=== PATIENT | male | born 1940 | race Caucasian/White ===

== ENCOUNTER 2019-02-26 00:22 | Inpatient (IN) | payer MEDICARE, MEDICAID ==
[2019-02-26] VITALS (8 sets, daily range): BP systolic 128–165; BP diastolic 64–85
[~2019-02-26] VITALS: Ht 170.2 cm; Wt 93.5 kg
--- NOTE | 2019-02-26 00:22 | NUR ---
ED Nurse Note: Patient arrived via Ambulance, AAOx4, VSS, on room air satirating at 91%. Pt C/O generanlized weakness for a few days. Right IV AC 24G inserted.
[2019-02-26] MEDS ORDERED: LOSARTAN POTASS25 M1 PO (00:37)
[2019-02-26] MEDS ORDERED: FINASTERIDE5 MG ORAL (00:37)
[2019-02-26] MEDS ORDERED: ASPIR 8181 MG ORAL (00:37)
[2019-02-26] MEDS ORDERED: BREO ELLIPTA 11 EACH IH (00:37)
[2019-02-26] MEDS ORDERED: VITAMIN D400 INTLU ORAL (00:37)
[2019-02-26] MEDS ORDERED: SIMVASTATIN40 MG ORAL (00:37)
[2019-02-26] MEDS ORDERED: MAGNESIUM200 M1 PO (00:37)
[2019-02-26] MEDS ORDERED: IPRATROPIU0.2 MG/1 M HHN (00:37)
[2019-02-26] MEDS ORDERED: METFORMIN500 MG/5 M PO (00:37)
[2019-02-26] MEDS ORDERED: ANDRODERM1 EAC2 TD (00:37)
[2019-02-26] MEDS ORDERED: TRADJENTA5 MG PO (00:37)
[2019-02-26] MEDS ORDERED: FLOMAX0.4 MG ORAL (00:37)
[2019-02-26] MEDS ORDERED: GLIPIZIDE5 G1 MC (00:37)
[2019-02-26] MEDS ORDERED: ACETAMINOPHEN325 M1 ORAL (00:37)
--- NOTE | 2019-02-26 00:38 | Emergency Room Report ---
History of Present Illness General Chief Complaint: Generalized Weakness Source: Patient, Medical Record Present Illness HPI This is a 78-year-old male with multiple medical problem. He was brought in by EMS with chief complaint of altered mental status. Onset 1 day. He did have some mild cough and shortness of breath yesterday. None today. Per EMS, [facility] said he look a bit weaker. No fever chills but no nausea no vomiting. The denies any chest pain. Allergies: Coded Allergies: No Known Allergies (Unverified , 02/26/19) Patient History Past Medical History: see triage record, old chart reviewed, DM, HTN Past Surgical History: other Pertinent Family History: none Social History: Denies: smoking Immunizations: other Reviewed Nursing Documentation: PMH: Agreed; PSxH: Agreed Nursing Documentation-PMH Hx Cardiac Problems: Yes - HYPERCHOLESTEROL Hx Hypertension: Yes Hx Diabetes: Yes Review of Systems Constitutional: Reports: weakness Eye: Denies: eye pain, blurred vision ENT: Denies: ear pain, nose congestion, throat swelling Respiratory: Denies: cough, shortness of breath Cardiovascular: Denies: chest pain, palpitations Gastrointestinal: Denies: abdominal pain, diarrhea, nausea, vomiting Musculoskeletal: Denies: back pain, joint pain Skin: Denies: rash Neurological: Denies: headache, numbness Endocrine: Denies: increased thirst, increased urine Hematologic/Lymphatic: Denies: easy bruising All Other Systems: negative except mentioned in HPI Physical Exam Vital Signs Date Time Temp Pulse Resp B/P (MAP) Pulse Ox O2 Delivery O2 Flow Rate FiO2 02/26/19 00:19 98.1 92 18 128/64 (85) 94 Room Air Vitals normal Sp02 EP Interpretation: reviewed, normal General Appearance: well appearing, no apparent distress, alert Head: normocephalic, atraumatic Eyes: bilateral eye PERRL, bilateral eye EOMI ENT: hearing grossly normal, normal pharynx Neck: full range of motion, supple, no meningismus Respiratory: chest non-tender, lungs clear, normal breath sounds Cardiovascular #1: regular rate, rhythm, no murmur Gastrointestinal: normal bowel sounds, non tender, no mass, no organomegaly, no bruit, non-distended Musculoskeletal: back normal, normal range of motion, other - Right lower extremity: There is some erythema on the medial aspect measuring about 4 to 5 cm. Psychiatric: mood/affect normal Medical Decision Making Diagnostic Impression: Primary Impression: Acute metabolic encephalopathy Additional Impression: UTI (urinary tract infection) Qualified Codes: N30.00 - Acute cystitis without hematuria ER Course Patient presents with a medic encephalopathy secondary to UTI. No evidence of any sepsis, pneumonia, meningitis, ACS to name a few. Will admit for IV antibiotics. Discussed the case with Dr. Anders who will admit. EKG Diagnostic Results Rate: normal Rhythm: NSR ST Segments: no acute changes Rhythm Strip Diag. Results EP Interpretation: yes Rate: 77 Rhythm: NSR, no PVC's, no ectopy Chest X-Ray Diagnostic Results Chest X-Ray Diagnostic Results : Chest X-Ray Ordered: Yes # of Views/Limited/Complete: 1 View Indication: Other EP Interpretation: Yes Interpretation: no consolidation, no effusion, no pneumothorax, no acute cardiopulmonary disease Impression: No acute disease Electronically Signed by: Arturo Rodriguez MD Last Vital Signs Date Time Temp Pulse Resp B/P (MAP) Pulse Ox O2 Delivery O2 Flow Rate FiO2 02/26/19 00:19 98.1 92 18 128/64 (85) 94 Room Air Status: improved Disposition: ADMITTED INPATIENT Condition: Serious Arturo Rodriguez MD Feb 26, 2019 00:38
[2019-02-26 01:18] LABS: BASOPHILS % (AUTO) 0.9 % (0.0-2.0); EOSINOPHILS % (AUTO) 3.5 % (0.0-3.0); HEMATOCRIT 41.3 % (42.0-52.0); HEMOGLOBIN 12.9 G/DL (14.2-18.0); LYMPHOCYTES % (AUTO) 18.1 % (20.0-45.0); MEAN CORPUSCULAR VOLUME 86 FL (80-99); MONOCYTES % (AUTO) 6.7 % (1.0-10.0); NEUTROPHILS % (AUTO) 70.8 % (45.0-75.0); PLATELET COUNT 334 K/UL (150-450); RED BLOOD COUNT 4.78 M/UL (4.70-6.10); RED CELL DISTRIBUTION WIDTH 14.6 % (11.6-14.8); WHITE BLOOD COUNT 13.9 K/UL (4.8-10.8)
[2019-02-26 01:27] LABS: ANION GAP 3 mmol/L (5-15); BLOOD UREA NITROGEN 14 mg/dL (7-18); CALCIUM 9.5 MG/DL (8.5-10.1); CARBON DIOXIDE 37 MMOL/L (21-32); CHLORIDE 106 MMOL/L (98-107); CREATININE 0.9 MG/DL (0.55-1.30); POTASSIUM 4.5 MMOL/L (3.5-5.1); SODIUM 146 MMOL/L (136-145)
[2019-02-26 02:06] LABS: APPEARANCE,URINE CLEAR; BILIRUBIN, URINE NEGATIVE (NEGATIVE); GLUCOSE, URINE (UA) NEGATIVE (NEGATIVE); KETONES,URINE NEGATIVE (NEGATIVE); LEUKOCYTE ESTERASE ,URINE 2+ (NEGATIVE); NITRITE,URINE NEGATIVE (NEGATIVE); PH,URINE 5 (4.5-8.0); PROTEIN,URINE 2+ (NEGATIVE); UROBILINOGEN,URINE NORMAL MG/DL (0.0-1.0)
[2019-02-26 02:08] LABS: COLOR,URINE YELLOW
[2019-02-26] MEDS ORDERED: cefTRIAXone 1 GM in NS 55 ML IVPB ONE (02:30)
--- NOTE | 2019-02-26 02:36 | NUR ---
ED Nurse Note: Wounds on buttox and RT huerta noted.
--- NOTE | 2019-02-26 02:45 | NUR ---
NURSE NOTES:Patient received from ED . Patient coming from [facility]. This is78 yrs old with multiple m problem. he was brought by EMS with c/o altered mental status . onset for 1 day. He did have some mild cough and sob yesterday /vss, afebrile .no sob /no n/v noted. patient personal belongings . Patient have $168.00 and visa credit card . Antonio MORENO and nursing non destructive testing supervisor Angela . notified and aware. left message to DR. DEAN AND DR. CAIN still awaiting yo call back . will continue to monitoR
--- NOTE | 2019-02-26 02:45 | Diagnostic Imaging Report ---
EXAM: XR Chest, 1 View CLINICAL HISTORY: AMS TECHNIQUE: Frontal view of the chest. COMPARISON: No relevant prior studies available. FINDINGS: Lungs: No consolidation, pleural effusion or pneumothorax. Pleural space: See above. Heart: No cardiomediastinal or mediastinal enlargement. No hilar enlargement. Trachea is unremarkable. Mediastinum: See above. Bones/joints: Unremarkable. Vasculature: Atherosclerotic calcifications of the nonenlarged thoracic aortic arch. IMPRESSION: No acute cardiopulmonary disease.
--- NOTE | 2019-02-26 05:03 | NUR ---
NURSE NOTES:Late entry :Patient was agitated , upset, verbally abusive ,aggressive , angry hitting nurses staff.pulling his IV line .and Patient refused a new IV Line insertion . Patient wound photo was taken .still awaiting. personal belongings patient unable to sign . still awaiting to DR. DEAN for admissions orders . Antonio MORENO notified and aware. Addendum: 02/27/19 at 0605 by PAULINE DU LVN Late entry Patient refused photo taken in left lateral lower extremities .Patient stated 'NO if you touch me I'LL hit you" Will continue to monitor . antonio moreno notified and aware.
--- NOTE | 2019-02-26 08:00 | NUR ---
NURSE NOTES: Patient was alert and confused but pleasant this morning and following commands. Patient had occasional episodes of agitation and frustration--active listening and increased visitation at bedside to increase patient monitoring which appeared to have a calming effect. Patient in room closest to RN station for closer observation. Tolerated 25-50% of brkfst and lunch with no nvd. Voiding in urinal in morning with multiple spillage--currently with condom cath in place. Patient worked with PT today. OOB to chair occasionally with assist x1. IV abx initiated. VSS. Breathing easily on RA. Bed in lowest, locked position with bed alarm active and audible. WCTM and cont'd with plan of care.
[2019-02-26] MEDS ORDERED: Morphine Sulfate 2mg/ml Inj(IV/IM USE ONLY) IVP PRN (09:15)
[2019-02-26] MEDS ORDERED: Albuterol/Ipratropium 3ml neb HHN PRN (09:15)
[2019-02-26] MEDS ORDERED: Miralax 17gm pkt ORAL PRN (09:15)
--- NOTE | 2019-02-26 09:58 | NUR ---
NURSE NOTES: Pt currently awake/alert Ox4, with $168 in wallet, declines to send it to safe. Pt signed belongings list and initialed decline to send to safe.
[2019-02-26] MEDS: Cefepime HCl 2 GM in D5W 110 ML IV SCH (10:00)
[2019-02-26] MEDS ORDERED: Cefepime HCl 2 GM in D5W 110 ML IV SCH (11:00)
[2019-02-26] MEDS ORDERED: Vancomycin 2gm/D5W 550ml IVPB ONE ×2 (11:00)
--- NOTE | 2019-02-26 14:59 | NUR ---
PT Note PT ines completed, treatment initiated. Patient has muscle weakness with decreased postural stability, requiring assist in mobility and gait. Patient needs PT to increase his muscle strength and balance to improve his functional mobility and gait. Addendum: 02/26/19 at 1500 by SARITA ROSALES PT Amended: Links added.
--- NOTE | 2019-02-26 16:08 | History & Physical ---
History and Physical History & Physicial Dictated for Int Med-Dr Anders no. [id number] Allen Krishnamurthy MD Feb 26, 2019 16:08
--- NOTE | 2019-02-26 18:45 | History and Physical Report ---
DATE OF ADMISSION: 02/26/2019 CHIEF COMPLAINT: The patient is a 78-year-old male, who presents with a chief complaint of altered mental status. HISTORY OF PRESENT ILLNESS: The patient is a resident of [facility]. According to staff at [facility], the patient became increasingly altered over the last 24 hours. The patient has had some cough. Cough is nonproductive. Staff reports no fevers. The patient presented to [facility] emergency room. The patient is admitted for altered mental status to rule out pneumonia versus urinary tract infection. REVIEW OF SYSTEMS: CONSTITUTIONAL: The patient denies weight loss or weight gain. The patient's review of systems unable to assess secondary to the patient's mental status. PAST MEDICAL HISTORY: Significant for: 1. Type 2 diabetes. 2. Hypertension. 3. Hypercholesterolemia. PAST SURGICAL HISTORY: The patient denies. CURRENT MEDICATIONS: 1. Tylenol 650 mg p.o. q.4 h. p.r.n. 2. Aspirin 81 mg p.o. daily. 3. Finasteride 5 mg p.o. daily. 4. Fluticasone/vilanterol 100/25 mcg one inhalation daily. 5. Glipizide powder daily. 6. Tradjenta 5 mg p.o. daily. 7. Losartan 50 mg p.o. daily. 8. Magnesium 40 mg p.o. daily. 9. Metformin 1000 mg p.o. twice daily. 10. Simvastatin 40 mg p.o. daily. 11. Flomax 0.4 mg p.o. daily. 12. Testosterone patch applied daily. 13. Vitamin D3 400 units p.o. daily. ALLERGIES: No known drug allergies. SOCIAL HISTORY: The patient is single and is a resident of [facility]. The patient denies tobacco or alcohol use. PHYSICAL EXAMINATION: VITAL SIGNS: Temperature 98.1, respirations 18, pulse 92, and blood pressure 128/64. GENERAL: The patient is a well-developed and well-nourished male, in no apparent distress. HEENT: Eyes, pupils are equal and responsive to light and accommodation. Extraocular movements are intact. NECK: Supple without lymphadenopathy. CHEST: Lungs are clear to auscultation bilaterally without wheezes or rales. CARDIOVASCULAR: Regular rhythm and rate. S1, S2 normal without murmurs, rubs, or gallops. ABDOMEN: Soft, nontender, and nondistended. Positive bowel sounds. No evidence of hepatosplenomegaly. Currently, no rebound or guarding noted. EXTREMITIES: Negative for clubbing, cyanosis, or edema. RECTAL/GENITAL: Refused. NEUROLOGIC: Cranial nerves II through XII are grossly intact without focal deficits. Motor strength is 5/5 bilaterally. Deep tendon reflexes are 2+ plantar. LABORATORY STUDIES: WBC 13.9, hemoglobin 12.9, hematocrit 41.3, and platelets 333,000. Sodium 146, potassium 4.5, chloride 106, CO2 37, BUN 14, and creatinine 0.9. Glucose 124. Urinalysis showed 2+ protein, 2+ blood, 2+ leukocyte esterase with 30 to 40 wbc's. ASSESSMENT: This is a 78-year-old male with: 1. Altered mental status. 2. Urinary tract infection. 3. Diabetes type 2. 4. Hypertension. 5. Hypercholesteremia. TREATMENT: 1. Altered mental status. This may be secondary to urinary tract infection. 2. Urinary tract infection. The patient has been started empirically on vancomycin and cefepime. Await urine culture results. 3. Diabetes type 2. NovoLog sliding scale has been instituted. 4. Hypertension. Continue losartan as above. 5. Hypercholesterolemia. Continue atorvastatin as above. Allen Krishnamurthy M.D. DR: SOFIE JOB#: [id number] CC:
--- NOTE | 2019-02-26 19:20 | NUR ---
NURSE NOTES:Patient received from Alfredito Jean patient A/A/OX3. With episode of confusions . RH g #22 h/l Patent and intact . Patient denies any pain at this time NO SOB/ NO N/ V Noted . fall and safety precautions . call light within reach . bed in low positions at all times . will continue to monitor .
--- NOTE | 2019-02-26 19:30 | Consultation ---
History of Present Illness General Date patient seen: Feb 27, 2019 Chief Complaint: Generalized Weakness Present Illness HPI 78-year-old male with hx of DM, HTN multiple medical problem, was brought in by EMS with chief complaint of altered mental status for 1 day. He did have some mild cough and shortness of breath yesterday. No fever chills but no nausea no vomiting. The denies any chest pain. Allergies: Coded Allergies: No Known Allergies (Unverified , 02/26/19) Medication History Scheduled Aspirin* (Aspir 81*), 81 MG ORAL DAILY, (Reported) Finasteride (Finasteride), 5 MG ORAL DAILY, (Reported) Simvastatin (Zocor), 40 MG ORAL BEDTIME, (Reported) Tamsulosin HCl (Flomax), 0.4 MG ORAL DAILY, (Reported) Vitamin D (Vitamin D3), 400 UNITS ORAL DAILY, (Reported) Scheduled PRN Acetaminophen* (Acetaminophen 325MG Tablet*), 325 MG ORAL Q4H PRN for For Pain, (Reported) Ipratropium [place] 0.5MG/2.5ML (Ipratropium [place] 0.5MG/2.5ML), 0.5 MG HHN Q6H PRN for Shortness of Breath, (Reported) Miscellaneous Medications Fluticasone/Vilanterol (Breo Ellipta 100-25 Mcg INH), 1 EACH IH, (Reported) Glipizide (Glipizide), 5 GM MC, (Reported) Linagliptin (Tradjenta), 5 MG PO, (Reported) Losartan Potassium (Losartan Potassium), 50 MG PO, (Reported) Magnesium (Magnesium), 400 MG PO, (Reported) Metformin HCl (Metformin HCl), 1,000 MG PO, (Reported) Testosterone (Androderm), 1 EACH TD, (Reported) Patient History Healthcare decision [place] [id number]. 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: 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 II-XII grossly normal Last 24 Hour Vital Signs Date Time Temp Pulse Resp B/P (MAP) Pulse Ox O2 Delivery O2 Flow Rate FiO2 02/26/19 16:00 98.0 83 20 142/85 (104) 95 02/26/19 12:00 98.2 95 18 137/75 (95) 95 02/26/19 09:00 Room Air 02/26/19 08:00 94 20 131/72 (91) 02/26/19 06:00 97.0 77 18 142/70 (94) 97 02/26/19 05:22 Nasal Cannula 3.0 02/26/19 03:56 98.7 64 18 115/63 96 Nasal Cannula 2.0 02/26/19 02:45 97.9 72 19 131/64 (86) 96 72 02/26/19 00:22 98.1 59 19 128/64 94 Nasal Cannula 2.0 02/26/19 00:22 58 19 Nasal Cannula 2.0 02/26/19 00:19 98.1 92 18 128/64 (85) 94 Room Air Intake and Output 02/25/19 02/26/19 18:59 06:59 Intake Total 60 ml Output Total 500 ml Balance -440 ml Intake Oral 60 ml Output Urine Total 500 ml # Voids 2 Laboratory Tests Test 02/26/19 01:05 02/26/19 01:44 White Blood Count 13.9 K/UL (4.8-10.8) H Red Blood Count 4.78 M/UL (4.70-6.10) Hemoglobin 12.9 G/DL (14.2-18.0) L Hematocrit 41.3 % (42.0-52.0) L Mean Corpuscular Volume 86 FL (80-99) Mean Corpuscular Hemoglobin 26.9 PG (27.0-31.0) L Mean Corpuscular Hemoglobin Concent 31.1 G/DL (32.0-36.0) L Red Cell Distribution Width 14.6 % (11.6-14.8) Platelet Count 334 K/UL (150-450) Mean Platelet Volume 6.3 FL (6.5-10.1) L Neutrophils (%) (Auto) 70.8 % (45.0-75.0) Lymphocytes (%) (Auto) 18.1 % (20.0-45.0) L Monocytes (%) (Auto) 6.7 % (1.0-10.0) Eosinophils (%) (Auto) 3.5 % (0.0-3.0) H Basophils (%) (Auto) 0.9 % (0.0-2.0) Sodium Level 146 MMOL/L (136-145) H Potassium Level 4.5 MMOL/L (3.5-5.1) Chloride Level 106 MMOL/L (98-107) Carbon Dioxide Level 37 MMOL/L (21-32) H Anion Gap 3 mmol/L (5-15) L Blood Urea Nitrogen 14 mg/dL (7-18) Creatinine 0.9 MG/DL (0.55-1.30) Estimat Glomerular Filtration Rate mL/min (>60) Glucose Level 124 MG/DL (74-106) H Calcium Level 9.5 MG/DL (8.5-10.1) Troponin I 0.000 ng/mL (0.000-0.056) Urine Color Yellow Urine Appearance Clear Urine pH 5 (4.5-8.0) Urine Specific [place] 1.020 (1.005-1.035) Urine Protein 2+ (NEGATIVE) H Urine Glucose (UA) Negative (NEGATIVE) Urine Ketones Negative (NEGATIVE) Urine Blood 2+ (NEGATIVE) H Urine Nitrite Negative (NEGATIVE) Urine Bilirubin Negative (NEGATIVE) Urine Urobilinogen Normal MG/DL (0.0-1.0) Urine Leukocyte Esterase 2+ (NEGATIVE) H Urine RBC 5-10 /HPF (0 - 0) H Urine WBC 30-40 /HPF (0 - 0) H Urine Squamous Epithelial Cells Occasional /LPF Urine Bacteria Few /HPF (NONE) Urine Yeast Moderate /HPF (NONE) H Height (Feet): 5 Height (Inches): 7.00 Weight (Pounds): 200 Medications Current Medications Medications (Trade) Dose Ordered Sig/David Route PRN Reason Start Time Stop Time Status Last Admin Dose Admin Acetaminophen (Tylenol) 650 mg Q4H PRN ORAL T>100.5 02/26/19 09:15 03/28/19 09:14 Albuterol/ Ipratropium (Albuterol/ Ipratropium) 3 ml Q4H PRN HHN Shortness of Breath 02/26/19 09:15 03/03/19 09:14 Cefepime HCl 2 gm/ Dextrose 110 ml @ 220 mls/hr Q24H IV 02/26/19 10:00 03/05/19 09:59 02/26/19 10:00 Finasteride (Proscar) 5 mg DAILY ORAL 02/27/19 09:00 03/29/19 08:59 Haloperidol Lactate (Haldol) 2.5 mg Q6H PRN IM AGITATION 02/26/19 09:30 03/28/19 09:29 Heparin Sodium (Porcine) (Heparin 5000 units/ml) 5,000 units EVERY 12 HOURS SUBQ 02/26/19 21:00 03/28/19 20:59 Losartan Potassium (Cozaar) 50 mg DAILY ORAL 02/27/19 09:00 03/29/19 08:59 Morphine Sulfate (Morphine Sulfate) 2 mg Q4H PRN IVP PAIN 4-10 02/26/19 09:15 03/05/19 09:14 Ondansetron HCl (Zofran) 4 mg Q6H PRN IVP Nausea & Vomiting 02/26/19 09:15 03/28/19 09:14 Phenazopyridine HCl (Pyridium) 100 mg DAILYPRN PRN ORAL dysuria/pain on urination 02/26/19 09:15 03/28/19 09:14 Polyethylene Glycol (Miralax) 17 gm DAILYPRN PRN ORAL Constipation 02/26/19 09:15 03/28/19 09:14 Tamsulosin HCl (Flomax) 0.4 mg QHS ORAL 02/27/19 21:00 03/29/19 20:59 Temazepam (Restoril) 15 mg HSPRN PRN ORAL Insomnia 02/26/19 21:00 03/05/19 20:59 Vancomycin HCl (Vanco rx to dose) 1 ea DAILY PRN MISC . 02/26/19 09:30 03/28/19 09:29 Vancomycin HCl 750 mg/Sodium Chloride 275 ml @ 183.333 mls/hr Q12HR@1100,2300 IVPB 02/26/19 23:00 03/03/19 22:59 Assessment/Plan Problem List: (1) Acute metabolic encephalopathy ICD Codes: G93.41 - Metabolic encephalopathy SNOMED: 64896238, 878640378 (2) UTI (urinary tract infection) ICD Codes: N39.0 - Urinary tract infection, site not specified SNOMED: 99203070, 902762623 Qualifiers: Qualified Codes: N30.00 - Acute cystitis without hematuria (3) Diabetes mellitus ICD Codes: E11.9 - Type 2 diabetes mellitus without complications SNOMED: 86235548 (4) History of hypertension ICD Codes: Z86.79 - Personal history of other diseases of the circulatory system SNOMED: 667470343 Assessment/Plan: urine cultures iv abx check electrolytes sliding scale diabetic diet Justino Durant MD Feb 26, 2019 19:30
[2019-02-26] MEDS: Heparin 5000 units/ml inj SUBQ SCH (20:47)
[2019-02-26] MEDS: Vancomycin 750mg/NS 275ml IVPB SCH ×2 (22:16)
--- NOTE | 2019-02-26 23:00 | NUR ---
NURSE NOTES:Patient Assisted setting in the chair and assisted back to bed. Patient on 02 2l VIA N/C in placed . 'safety/ comfort Implemented . call light within reach. bed in low positions and lock . bed alarm on. will continue to monitor.
[2019-02-26] MEDS: Haloperidol 5mg/ml Inj IM PRN (23:32)
--- NOTE | 2019-02-26 23:32 | NUR ---
NURSE NOTES:Patient with slightly agitation Haldol 2.5 MG IM given. will continue to monitor.
[2019-02-27] VITALS: BP 143/73
[2019-02-27] MEDS ORDERED: Vancomycin 1 GM in D5W 275 ML IV SCH (00:30)
[2019-02-27 04:00] VITALS: BP 152/55
--- NOTE | 2019-02-27 06:05 | NUR ---
NURSE NOTES:Initiate wound dressing right and left buttocks and right calf per protocol .Offer patient photo on left lateral lower extremities Patient refused photo on left lateral lower extremities MIRNA CN notified and aware . explained the risk and benefits , still refusing .will continue to monitor .
[2019-02-27 06:38] LABS: BASOPHILS % (AUTO) 1.1 % (0.0-2.0); EOSINOPHILS % (AUTO) 4.3 % (0.0-3.0); HEMATOCRIT 36.8 % (42.0-52.0); HEMOGLOBIN 11.7 G/DL (14.2-18.0); LYMPHOCYTES % (AUTO) 21.6 % (20.0-45.0); MEAN CORPUSCULAR VOLUME 85 FL (80-99); MONOCYTES % (AUTO) 6.9 % (1.0-10.0); NEUTROPHILS % (AUTO) 66.1 % (45.0-75.0); PLATELET COUNT 273 K/UL (150-450); RED BLOOD COUNT 4.34 M/UL (4.70-6.10); RED CELL DISTRIBUTION WIDTH 14.3 % (11.6-14.8)
[2019-02-27 06:53] LABS: ALANINE AMINOTRANSFERASE 7 U/L (12-78); ALBUMIN 2.7 G/DL (3.4-5.0); ALBUMIN/GLOBULIN RATIO 0.8 (1.0-2.7); ALKALINE PHOSPHATASE 24 U/L (46-116); ANION GAP 4 mmol/L (5-15); ASPARTATE AMINO TRANSFERASE 12 U/L (15-37); BILIRUBIN,TOTAL 0.4 MG/DL (0.2-1.0); BLOOD UREA NITROGEN 8 mg/dL (7-18); CALCIUM 8.6 MG/DL (8.5-10.1); CARBON DIOXIDE 34 MMOL/L (21-32); CHLORIDE 104 MMOL/L (98-107); CREATININE 0.7 MG/DL (0.55-1.30); POTASSIUM 4.1 MMOL/L (3.5-5.1); SODIUM 142 MMOL/L (136-145)
--- NOTE | 2019-02-27 07:00 | NUR ---
NURSE NOTES:Call central supply for Patent overlay mattress. Stated to wait for wound care nurse . Endorsed to Dakota Jean to follow up .
--- NOTE | 2019-02-27 07:15 | NUR ---
HAND-OFF: Report given to SHELBY Jean Patient personal belongings Patient $168.00 and 1 visa inside Patient wallet .
--- NOTE | 2019-02-27 07:15 | NUR ---
NURSE NOTES: Patient received from RACHEL Leslie. Patient is AAOx3 with episode of confusions. RH g #22 h/l is patent and intact and wrapped in kerlix. Patient denies any pain at this time. patient is on 2L NC. patient is breathing even and unlabored. Fall and safety precautions initiated. Call light within reach. Setup patient to eat breakfast. Bed in low positions at all times . Will continue to monitor .
[2019-02-27] MEDS ORDERED: Losartan 50mg tab ORAL SCH (09:00)
--- NOTE | 2019-02-27 10:00 | NUR ---
NURSE NOTES: Patient removed condom catheter. patient asks to be moved from bed to chair about every 1/2 hour.
[2019-02-27] MEDS: Cefepime HCl 2 GM in D5W 110 ML IV SCH ×2 (10:03→22:16)
[2019-02-27] MEDS: Heparin 5000 units/ml inj SUBQ SCH ×2 (10:15→22:17)
[2019-02-27] MEDS: Vancomycin 750mg/NS 275ml IVPB SCH ×2 (11:09)
--- NOTE | 2019-02-27 11:58 | Pulmonology Progress Note ---
Assessment/Plan Problems: (1) Acute metabolic encephalopathy (2) UTI (urinary tract infection) (3) Diabetes mellitus (4) History of hypertension Assessment/Plan f/u cultures continue abx sliding scale diabetic diet dvt prophylaxis Subjective ROS Limited/Unobtainable: No Constitutional: Reports: no symptoms HEENT: Repors: no symptoms Allergies: Coded Allergies: No Known Allergies (Unverified , 02/26/19) Objective Last 24 Hour Vital Signs Date Time Temp Pulse Resp B/P (MAP) Pulse Ox O2 Delivery O2 Flow Rate FiO2 02/27/19 10:11 165/82 02/27/19 09:00 Nasal Cannula 2.0 02/27/19 04:00 98.2 66 18 152/55 (87) 96 02/27/19 00:00 98.2 80 18 143/73 (96) 96 02/26/19 21:00 Nasal Cannula 2.0 02/26/19 20:29 85 20 99 Nasal Cannula 2.0 28 02/26/19 20:24 80 20 94 Nasal Cannula 2.0 28 02/26/19 20:22 80 20 94 Nasal Cannula 2.0 28 02/26/19 20:15 98.2 86 18 140/77 (98) 98 02/26/19 20:00 98.2 91 18 165/71 (102) 98 02/26/19 16:00 98.0 83 20 142/85 (104) 95 02/26/19 12:00 98.2 95 18 137/75 (95) 95 Intake and Output 02/26/19 02/27/19 19:00 07:00 Intake Total 120 ml 1163.333 ml Output Total 300 ml 1200 ml Balance -180 ml -36.667 ml Intake Oral 120 ml 980 ml IV Total 183.333 ml Output Urine Total 300 ml 1200 ml # Voids 3 General Appearance: WD/WN, no acute distress HEENT: normocephalic Respiratory/Chest: chest wall non-tender, lungs clear Cardiovascular: normal peripheral pulses, normal rate Abdomen: normal bowel sounds, soft, non tender Genitourinary: normal external genitalia Extremities: no clubbing Skin: no rash Neurologic/Psychiatric: cra II-XII grossly normal Lymphatic: no neck adenopathy Microbiology Date/Time Source Procedure Growth Status 02/26/19 01:44 Urine,Clean Catch Urine Culture - Preliminary NO GROWTH Resulted Laboratory Tests 02/27/19 04:50: White Blood Count 11.0H, Red Blood Count 4.34L, Hemoglobin 11.7L, Hematocrit 36.8L, Mean Corpuscular Volume 85, Mean Corpuscular Hemoglobin 26.9L, Mean Corpuscular Hemoglobin Concent 31.7L, Red Cell Distribution Width 14.3, Platelet Count 273, Mean Platelet Volume 5.6L, Neutrophils (%) (Auto) 66.1, Lymphocytes (%) (Auto) 21.6, Monocytes (%) (Auto) 6.9, Eosinophils (%) (Auto) 4.3H, Basophils (%) (Auto) 1.1, Sodium Level 142, Potassium Level 4.1, Chloride Level 104, Carbon Dioxide Level 34H, Anion Gap 4L, Blood Urea Nitrogen 8, Creatinine 0.7, Estimat Glomerular Filtration Rate , Glucose Level 169H, Calcium Level 8.6, Total Bilirubin 0.4, Aspartate Amino Transf (AST/SGOT) 12L, Alanine Aminotransferase (ALT/SGPT) 7L, Alkaline Phosphatase 24L, Total Protein 6.3L, Albumin 2.7L, Globulin 3.6, Albumin/Globulin Ratio 0.8L Current Medications Medications (Trade) Dose Ordered Sig/David Route PRN Reason Start Time Stop Time Status Last Admin Dose Admin Acetaminophen (Tylenol) 650 mg Q4H PRN ORAL T>100.5 02/26/19 09:15 03/28/19 09:14 Albuterol/ Ipratropium (Albuterol/ Ipratropium) 3 ml Q4H PRN HHN Shortness of Breath 02/26/19 09:15 03/03/19 09:14 02/26/19 20:22 Cefepime HCl 2 gm/ Dextrose 110 ml @ 220 mls/hr Q12H IV 02/27/19 21:00 03/05/19 09:59 Finasteride (Proscar) 5 mg DAILY ORAL 02/27/19 09:00 03/29/19 08:59 02/27/19 10:04 Haloperidol Lactate (Haldol) 2.5 mg Q6H PRN IM AGITATION 02/26/19 09:30 03/28/19 09:29 02/26/19 23:32 Heparin Sodium (Porcine) (Heparin 5000 units/ml) 5,000 units EVERY 12 HOURS SUBQ 02/26/19 21:00 03/28/19 20:59 02/27/19 10:15 Losartan Potassium (Cozaar) 50 mg DAILY ORAL 02/27/19 09:00 03/29/19 08:59 02/27/19 10:11 Morphine Sulfate (Morphine Sulfate) 2 mg Q4H PRN IVP PAIN 4-10 02/26/19 09:15 03/05/19 09:14 Ondansetron HCl (Zofran) 4 mg Q6H PRN IVP Nausea & Vomiting 02/26/19 09:15 03/28/19 09:14 Phenazopyridine HCl (Pyridium) 100 mg DAILYPRN PRN ORAL dysuria/pain on urination 02/26/19 09:15 03/28/19 09:14 Polyethylene Glycol (Miralax) 17 gm DAILYPRN PRN ORAL Constipation 02/26/19 09:15 03/28/19 09:14 Tamsulosin HCl (Flomax) 0.4 mg QHS ORAL 02/27/19 21:00 03/29/19 20:59 Temazepam (Restoril) 15 mg HSPRN PRN ORAL Insomnia 02/26/19 21:00 03/05/19 20:59 02/26/19 21:45 Vancomycin HCl (Vanco rx to dose) 1 ea DAILY PRN MISC . 02/26/19 09:30 03/28/19 09:29 Vancomycin HCl 750 mg/Sodium Chloride 275 ml @ 183.333 mls/hr Q12HR@1100,2300 IVPB 02/26/19 23:00 03/03/19 22:59 02/27/19 11:09 Justino Durant MD Feb 27, 2019 11:58
[2019-02-27 12:00] VITALS: BP 166/84
--- NOTE | 2019-02-27 12:00 | NUR ---
NURSE NOTES: Patient noted to kick pillows off, remove optifoam dressing, denies pictures and assessment of lower extremity. Will continue to monitor patient.
--- NOTE | 2019-02-27 13:33 | Consultation ---
History of Present Illness General Date patient seen: Feb 27, 2019 Chief Complaint: Generalized Weakness Present Illness HPI 78 y/o M with hx of DM, HTN, HLD, BPH, SNF resident presented to ED on 02/26 with 1 day of altered mental status, mild cough (non productive), SOB Denied f/c, n/v/d, chest pain Allergies: Coded Allergies: No Known Allergies (Unverified , 02/26/19) Medication History Scheduled Aspirin* (Aspir 81*), 81 MG ORAL DAILY, (Reported) Finasteride (Finasteride), 5 MG ORAL DAILY, (Reported) Simvastatin (Zocor), 40 MG ORAL BEDTIME, (Reported) Tamsulosin HCl (Flomax), 0.4 MG ORAL DAILY, (Reported) Vitamin D (Vitamin D3), 400 UNITS ORAL DAILY, (Reported) Scheduled PRN Acetaminophen* (Acetaminophen 325MG Tablet*), 325 MG ORAL Q4H PRN for For Pain, (Reported) Ipratropium [place] 0.5MG/2.5ML (Ipratropium [place] 0.5MG/2.5ML), 0.5 MG HHN Q6H PRN for Shortness of Breath, (Reported) Miscellaneous Medications Fluticasone/Vilanterol (Breo Ellipta 100-25 Mcg INH), 1 EACH IH, (Reported) Glipizide (Glipizide), 5 GM MC, (Reported) Linagliptin (Tradjenta), 5 MG PO, (Reported) Losartan Potassium (Losartan Potassium), 50 MG PO, (Reported) Magnesium (Magnesium), 400 MG PO, (Reported) Metformin HCl (Metformin HCl), 1,000 MG PO, (Reported) Testosterone (Androderm), 1 EACH TD, (Reported) Patient History Healthcare decision [place] [facility] [address]. Resuscitation status Do Not Resuscitate Advanced Directive on File No Patient History Narrative Pmhx: as above Shx: Denies: smoking. The patient is single and is a resident of [facility]. The patient denies alcohol use. 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 Last 24 Hour Vital Signs Date Time Temp Pulse Resp B/P (MAP) Pulse Ox O2 Delivery O2 Flow Rate FiO2 02/27/19 12:59 86 166/84 02/27/19 12:00 98.2 86 20 166/84 (111) 94 02/27/19 10:11 165/82 02/27/19 09:00 Nasal Cannula 2.0 02/27/19 04:00 98.2 66 18 152/55 (87) 96 02/27/19 00:00 98.2 80 18 143/73 (96) 96 02/26/19 21:00 Nasal Cannula 2.0 02/26/19 20:29 85 20 99 Nasal Cannula 2.0 28 02/26/19 20:24 80 20 94 Nasal Cannula 2.0 28 02/26/19 20:22 80 20 94 Nasal Cannula 2.0 28 02/26/19 20:15 98.2 86 18 140/77 (98) 98 02/26/19 20:00 98.2 91 18 165/71 (102) 98 02/26/19 16:00 98.0 83 20 142/85 (104) 95 Intake and Output 02/26/19 02/27/19 19:00 07:00 Intake Total 120 ml 1163.333 ml Output Total 300 ml 1200 ml Balance -180 ml -36.667 ml Intake Oral 120 ml 980 ml IV Total 183.333 ml Output Urine Total 300 ml 1200 ml # Voids 3 Laboratory Tests Test 02/27/19 04:50 White Blood Count 11.0 K/UL (4.8-10.8) H Red Blood Count 4.34 M/UL (4.70-6.10) L Hemoglobin 11.7 G/DL (14.2-18.0) L Hematocrit 36.8 % (42.0-52.0) L Mean Corpuscular Volume 85 FL (80-99) Mean Corpuscular Hemoglobin 26.9 PG (27.0-31.0) L Mean Corpuscular Hemoglobin Concent 31.7 G/DL (32.0-36.0) L Red Cell Distribution Width 14.3 % (11.6-14.8) Platelet Count 273 K/UL (150-450) Mean Platelet Volume 5.6 FL (6.5-10.1) L Neutrophils (%) (Auto) 66.1 % (45.0-75.0) Lymphocytes (%) (Auto) 21.6 % (20.0-45.0) Monocytes (%) (Auto) 6.9 % (1.0-10.0) Eosinophils (%) (Auto) 4.3 % (0.0-3.0) H Basophils (%) (Auto) 1.1 % (0.0-2.0) Sodium Level 142 MMOL/L (136-145) Potassium Level 4.1 MMOL/L (3.5-5.1) Chloride Level 104 MMOL/L (98-107) Carbon Dioxide Level 34 MMOL/L (21-32) H Anion Gap 4 mmol/L (5-15) L Blood Urea Nitrogen 8 mg/dL (7-18) Creatinine 0.7 MG/DL (0.55-1.30) Estimat Glomerular Filtration Rate mL/min (>60) Glucose Level 169 MG/DL (74-106) H Calcium Level 8.6 MG/DL (8.5-10.1) Total Bilirubin 0.4 MG/DL (0.2-1.0) Aspartate Amino Transf (AST/SGOT) 12 U/L (15-37) L Alanine Aminotransferase (ALT/SGPT) 7 U/L (12-78) L Alkaline Phosphatase 24 U/L (46-116) L Total Protein 6.3 G/DL (6.4-8.2) L Albumin 2.7 G/DL (3.4-5.0) L Globulin 3.6 g/dL Albumin/Globulin Ratio 0.8 (1.0-2.7) L Height (Feet): 5 Height (Inches): 7.00 Weight (Pounds): 200 Medications Current Medications Medications (Trade) Dose Ordered Sig/David Route PRN Reason Start Time Stop Time Status Last Admin Dose Admin Acetaminophen (Tylenol) 650 mg Q4H PRN ORAL T>100.5 02/26/19 09:15 03/28/19 09:14 Albuterol/ Ipratropium (Albuterol/ Ipratropium) 3 ml Q4H PRN HHN Shortness of Breath 02/26/19 09:15 03/03/19 09:14 02/26/19 20:22 Amlodipine Besylate (Norvasc) 5 mg DAILY ORAL 02/27/19 12:30 03/29/19 12:29 02/27/19 12:59 Cefepime HCl 2 gm/ Dextrose 110 ml @ 220 mls/hr Q12H IV 02/27/19 21:00 03/05/19 09:59 Clonidine HCl (Catapres Tab) 0.1 mg Q6H PRN ORAL For SBP >160 02/27/19 12:30 03/29/19 12:29 Finasteride (Proscar) 5 mg DAILY ORAL 02/27/19 09:00 03/29/19 08:59 02/27/19 10:04 Haloperidol Lactate (Haldol) 2.5 mg Q6H PRN IM AGITATION 02/26/19 09:30 03/28/19 09:29 02/26/19 23:32 Heparin Sodium (Porcine) (Heparin 5000 units/ml) 5,000 units EVERY 12 HOURS SUBQ 02/26/19 21:00 03/28/19 20:59 02/27/19 10:15 Losartan Potassium (Cozaar) 50 mg DAILY ORAL 02/27/19 09:00 03/29/19 08:59 02/27/19 10:11 Morphine Sulfate (Morphine Sulfate) 2 mg Q4H PRN IVP PAIN 4-10 02/26/19 09:15 03/05/19 09:14 Ondansetron HCl (Zofran) 4 mg Q6H PRN IVP Nausea & Vomiting 02/26/19 09:15 03/28/19 09:14 Phenazopyridine HCl (Pyridium) 100 mg DAILYPRN PRN ORAL dysuria/pain on urination 02/26/19 09:15 03/28/19 09:14 Polyethylene Glycol (Miralax) 17 gm DAILYPRN PRN ORAL Constipation 02/26/19 09:15 03/28/19 09:14 Tamsulosin HCl (Flomax) 0.4 mg QHS ORAL 02/27/19 21:00 03/29/19 20:59 Temazepam (Restoril) 15 mg HSPRN PRN ORAL Insomnia 02/26/19 21:00 03/05/19 20:59 02/26/19 21:45 Vancomycin HCl (Vanco rx to dose) 1 ea DAILY PRN MISC . 02/26/19 09:30 03/28/19 09:29 Vancomycin HCl 750 mg/Sodium Chloride 275 ml @ 183.333 mls/hr Q12HR@1100,2300 IVPB 02/26/19 23:00 03/03/19 22:59 02/27/19 11:09 Assessment/Plan Assessment/Plan: Abx: IV Vancomycin 02/26- Cefepime 02/26- Ceftriaxone x1 02/26 Assessment: Acute encephalopathy Afebrile Mild leukocytosis, improving -CXR No acute cardiopulmonary disease. Probable UTI -u/a wbc 30-40, nit neg, leuk +2; ucx p DM HTN HLD BPH SNF resident Plan: -Continue empiric Cefepime #2 pending UCx -D/c empiric IV Vancomycin #2 -f/u cx -Monitor CBC/CMP, temperatures Thank you for this consultation. Will continue to follow along with you. Discussed with Sally Draper M.D. Feb 27, 2019 13:33
--- NOTE | 2019-02-27 13:36 | Internal Med Progress Note ---
Subjective Date of Service: Feb 27, 2019 Physician Name Krishnamurthy,Allen Attending Physician Matthew Anders MD Current Medications Medications (Trade) Dose Ordered Sig/David Route PRN Reason Start Time Stop Time Status Last Admin Dose Admin Acetaminophen (Tylenol) 650 mg Q4H PRN ORAL T>100.5 02/26/19 09:15 03/28/19 09:14 Albuterol/ Ipratropium (Albuterol/ Ipratropium) 3 ml Q4H PRN HHN Shortness of Breath 02/26/19 09:15 03/03/19 09:14 02/26/19 20:22 Amlodipine Besylate (Norvasc) 5 mg DAILY ORAL 02/27/19 12:30 03/29/19 12:29 02/27/19 12:59 Cefepime HCl 2 gm/ Dextrose 110 ml @ 220 mls/hr Q12H IV 02/27/19 21:00 03/05/19 09:59 Clonidine HCl (Catapres Tab) 0.1 mg Q6H PRN ORAL For SBP >160 02/27/19 12:30 03/29/19 12:29 Finasteride (Proscar) 5 mg DAILY ORAL 02/27/19 09:00 03/29/19 08:59 02/27/19 10:04 Haloperidol Lactate (Haldol) 2.5 mg Q6H PRN IM AGITATION 02/26/19 09:30 03/28/19 09:29 02/26/19 23:32 Heparin Sodium (Porcine) (Heparin 5000 units/ml) 5,000 units EVERY 12 HOURS SUBQ 02/26/19 21:00 03/28/19 20:59 02/27/19 10:15 Losartan Potassium (Cozaar) 50 mg DAILY ORAL 02/27/19 09:00 03/29/19 08:59 02/27/19 10:11 Morphine Sulfate (Morphine Sulfate) 2 mg Q4H PRN IVP PAIN 4-10 02/26/19 09:15 03/05/19 09:14 Ondansetron HCl (Zofran) 4 mg Q6H PRN IVP Nausea & Vomiting 02/26/19 09:15 03/28/19 09:14 Phenazopyridine HCl (Pyridium) 100 mg DAILYPRN PRN ORAL dysuria/pain on urination 02/26/19 09:15 9/10/19 09:14 Polyethylene Glycol (Miralax) 17 gm DAILYPRN PRN ORAL Constipation 02/26/19 09:15 03/28/19 09:14 02/27/19 13:32 Tamsulosin HCl (Flomax) 0.4 mg QHS ORAL 02/27/19 21:00 03/29/19 20:59 Temazepam (Restoril) 15 mg HSPRN PRN ORAL Insomnia 02/26/19 21:00 03/05/19 20:59 02/26/19 21:45 Allergies: Coded Allergies: No Known Allergies (Unverified , 02/26/19) ROS Limited/Unobtainable: Yes Subjective 78 YO M admitted with altered mental status. Cover for Int [place]-Dr Anders Objective Last Vital Signs Date Time Temp Pulse Resp B/P (MAP) Pulse Ox O2 Delivery O2 Flow Rate FiO2 02/27/19 12:59 86 166/84 02/27/19 12:00 98.2 20 94 02/27/19 09:00 Nasal Cannula 2.0 02/26/19 20:29 28 Laboratory Tests Test 02/27/19 04:50 White Blood Count 11.0 K/UL (4.8-10.8) H Red Blood Count 4.34 M/UL (4.70-6.10) L Hemoglobin 11.7 G/DL (14.2-18.0) L Hematocrit 36.8 % (42.0-52.0) L Mean Corpuscular Volume 85 FL (80-99) Mean Corpuscular Hemoglobin 26.9 PG (27.0-31.0) L Mean Corpuscular Hemoglobin Concent 31.7 G/DL (32.0-36.0) L Red Cell Distribution Width 14.3 % (11.6-14.8) Platelet Count 273 K/UL (150-450) Mean Platelet Volume 5.6 FL (6.5-10.1) L Neutrophils (%) (Auto) 66.1 % (45.0-75.0) Lymphocytes (%) (Auto) 21.6 % (20.0-45.0) Monocytes (%) (Auto) 6.9 % (1.0-10.0) Eosinophils (%) (Auto) 4.3 % (0.0-3.0) H Basophils (%) (Auto) 1.1 % (0.0-2.0) Sodium Level 142 MMOL/L (136-145) Potassium Level 4.1 MMOL/L (3.5-5.1) Chloride Level 104 MMOL/L (98-107) Carbon Dioxide Level 34 MMOL/L (21-32) H Anion Gap 4 mmol/L (5-15) L Blood Urea Nitrogen 8 mg/dL (7-18) Creatinine 0.7 MG/DL (0.55-1.30) Estimat Glomerular Filtration Rate mL/min (>60) Glucose Level 169 MG/DL (74-106) H Calcium Level 8.6 MG/DL (8.5-10.1) Total Bilirubin 0.4 MG/DL (0.2-1.0) Aspartate Amino Transf (AST/SGOT) 12 U/L (15-37) L Alanine Aminotransferase (ALT/SGPT) 7 U/L (12-78) L Alkaline Phosphatase 24 U/L (46-116) L Total Protein 6.3 G/DL (6.4-8.2) L Albumin 2.7 G/DL (3.4-5.0) L Globulin 3.6 g/dL Albumin/Globulin Ratio 0.8 (1.0-2.7) L Microbiology Date/Time Source Procedure Growth Status 02/26/19 01:44 Urine,Clean Catch Urine Culture - Preliminary NO GROWTH Resulted Intake and Output 02/26/19 02/27/19 19:00 07:00 Intake Total 120 ml 1163.333 ml Output Total 300 ml 1200 ml Balance -180 ml -36.667 ml Intake Oral 120 ml 980 ml IV Total 183.333 ml Output Urine Total 300 ml 1200 ml # Voids 3 Objective PHYSICAL EXAMINATION: GENERAL: The patient is a well-developed and well-nourished male, in no apparent distress. HEENT: Eyes, pupils are equal and responsive to light and accommodation. Extraocular movements are intact. NECK: Supple without lymphadenopathy. CHEST: Lungs are clear to auscultation bilaterally without wheezes or rales. CARDIOVASCULAR: Regular rhythm and rate. S1, S2 normal without murmurs, rubs, or gallops. ABDOMEN: Soft, nontender, and nondistended. Positive bowel sounds. No evidence of hepatosplenomegaly. Currently, no rebound or guarding noted. EXTREMITIES: Negative for clubbing, cyanosis, or edema. RECTAL/GENITAL: Refused. NEUROLOGIC: Cranial nerves II through XII are grossly intact without focal deficits. Motor strength is 5/5 bilaterally. Deep tendon reflexes are 2+ plantar. Assessment/Plan Assessment/Plan ASSESSMENT: This is a 78-year-old male with: 1. Altered mental status. 2. Urinary tract infection. 3. Diabetes type 2. 4. Hypertension. 5. Hypercholesteremia. TREATMENT: 1. Altered mental status. This may be secondary to urinary tract infection. 2. Urinary tract infection. The patient has been started empirically on vancomycin and cefepime. Await urine culture results. 3. Diabetes type 2. NovoLog sliding scale has been instituted. 4. Hypertension. Continue losartan as above. 5. Hypercholesterolemia. Continue atorvastatin as above. Allen Krishnamurthy MD Feb 27, 2019 13:36
--- NOTE | 2019-02-27 14:00 | NUR ---
NURSE NOTES: Although patient does small urine output in urinal, Patient states difficulty to urinate. Dr. Durant was notified and order for [place] was in placed.
[2019-02-27] MEDS: Haloperidol 5mg/ml Inj IM PRN (15:10)
--- NOTE | 2019-02-27 15:24 | NUR ---
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 IS: none Admitted to Med-surg Med-surg status DCP: Pending Hospital Stay
--- NOTE | 2019-02-27 16:45 | NUR ---
NURSE NOTES: Made two attempts to insert cooper and by charge nurse. Both attempts unsuccessful. Made page to Dr. Durant about possible urology consult.
--- NOTE | 2019-02-27 16:50 | NUR ---
DISCHARGE PLANNING DISCHARGE ORDER NOTED Patient has been accepted to; [facility] [address], [place] [address] Bed: [address] [phone] for Nurse to Nurse report [facility] ETA for transportation: 17:30 Addendum: 02/27/19 at 1702 by BERNADETTE WALLS CM ((( d/c order canceled)))
--- NOTE | 2019-02-27 19:30 | NUR ---
HAND-OFF: Report given to RACHEL Gastelum. When entering the room, the patient shown labored breathing, and altered mental status. Upon rechecking v/s, noticed heart rate 125 and blood pressure in the 180s. BROILER MANAGER was called. SEE BROILER MANAGER NOTE. Steffanie was inserted. Dr. Durant was notified. Patient will be transferred to tele. BROILER MANAGER ended at 19:30.
--- NOTE | 2019-02-27 19:34 | NUR ---
NURSE'S NOTES: DIRECTOR OF DISTRICT OFFICE CALLED AT 1914 FOR AMS, HIGH BLOOD PRESSURE POST CLONIDINE .01MG AT 184/110 HR OF 125, O2 SAT AT 90% @2L VIA NC AND URINARY RETENTION. DIRECTOR OF DISTRICT OFFICE TEAM CAME AT 1916; PATIENT PLACED ON THE MONITOR WHICH SHOWED SINUS TACH. O2 INCREASED TO 4L/MIN, RT TX GIVEN BUT PATIENT OBSERVED TAKING MASK OFF; RESTRAINTS INITIATED AT 1922; MANN INSERTED AT 1924. BP AND HR NOW OBSERVED TO BE GOING DOWN BP 168/81 HR 108 AT 1927. STAT ORDERS RECEIVED FROM DR. DEAN; TRANSFER TO [facility], STAT EKG AND HYDRALAZINE 5 MG IVP Q4H FOR SBP>160. DIRECTOR OF DISTRICT OFFICE COMPLETED AT 1929
--- NOTE | 2019-02-27 19:53 | NUR ---
NURSE'S NOTES: DR. VERMA CALLED; RELAYED TO MD THAT MANAGER CODING RN ABLE TO INSERT IV. 1200CC URINE OUT WITH SOME HEMATURIA BUT NO BLOOD CLOTS.
[2019-02-27 20:00] VITALS: BP 136/70
--- NOTE | 2019-02-27 20:28 | NUR ---
nurse's notes: transferred patient to [facility] via bed to rm 210-1 at 2009; report given to micheal; went through belongings; all accounted for; patient with $168 ng in wallet; endorsed ng to micheal; patient is sleeping, with no visible s/s of distress at time of transfer.
--- NOTE | 2019-02-27 20:30 | NUR ---
NURSE NOTES: Received patient/report from RACHEL Gastelum from 301-1. Patient in bed asleep showing no signs of acute distress. Respiration even and non labored on 2L nc O2. Patient noted on Bilateral soft wrist restraints, cap refill <3sec, skin is intact, no skin discoloration and no injury noted. IV on right Hand patent and intact. [place] patent, intact and draining. monitoring analyst on showing SR. Wound photo taken and uploaded. Went over belongings checklist with Oriana. Call light within reach, bed in lowest position, wheels locked and alarm on. All needs attended and met. Will continue plan of care. Addendum: 02/28/19 at 0118 by CHAPARRO BENNETT RN Belongings went over with Oriana, Reza has $168.00 ng and 1 visa kept at bed side drawer.
[2019-02-27] MEDS ORDERED: Miralax 17gm pkt ORAL PRN (21:00)
[2019-02-27] MEDS ORDERED: Cefepime HCl 2 GM in D5W 110 ML IV SCH (21:00)
[2019-02-27] MEDS ORDERED: Tamsulosin 0.4mg cap ORAL SCH (21:00)
[2019-02-27] MEDS: Tamsulosin 0.4mg cap ORAL SCH (21:00)
[2019-02-27] MEDS ORDERED: Albuterol/Ipratropium 3ml neb HHN PRN (21:15)
[2019-02-27] MEDS ORDERED: Morphine Sulfate 2mg/ml Inj(IV/IM USE ONLY) IVP PRN (21:15)
[2019-02-27] MEDS ORDERED: Haloperidol 5mg/ml Inj IM PRN (21:30)
[2019-02-28] VITALS (7 sets, daily range): BP systolic 108–148; BP diastolic 58–81
--- NOTE | 2019-02-28 07:10 | NUR ---
NURSE NOTES: Received patient RACHEL Dasilva. Patient is in bed asleep showing no signs of acute distress. Respiration even and non labored on 2L nc O2. Patient has Bilateral soft wrist restraints, cap refill <3sec, skin is intact, no skin discoloration and no injury noted. IV on right Hand patent and intact. [place] patent, intact and draining. laboratory monitor on showing SR. Call light within reach, bed in lowest position, wheels locked and alarm on. Will continue plan of care.
--- NOTE | 2019-02-28 07:16 | NUR ---
HAND-OFF: Report given to RACHEL Duncan.
[2019-02-28 07:20] LABS: BASOPHILS % (AUTO) 0.8 % (0.0-2.0); EOSINOPHILS % (AUTO) 1.3 % (0.0-3.0); HEMATOCRIT 40.9 % (42.0-52.0); HEMOGLOBIN 13.1 G/DL (14.2-18.0); LYMPHOCYTES % (AUTO) 16.1 % (20.0-45.0); MEAN CORPUSCULAR VOLUME 85 FL (80-99); MONOCYTES % (AUTO) 5.4 % (1.0-10.0); NEUTROPHILS % (AUTO) 76.5 % (45.0-75.0); PLATELET COUNT 306 K/UL (150-450); RED BLOOD COUNT 4.81 M/UL (4.70-6.10); RED CELL DISTRIBUTION WIDTH 14.1 % (11.6-14.8); WHITE BLOOD COUNT 14.1 K/UL (4.8-10.8)
[2019-02-28 07:33] LABS: ANION GAP 6 mmol/L (5-15); BLOOD UREA NITROGEN 10 mg/dL (7-18); CALCIUM 8.8 MG/DL (8.5-10.1); CARBON DIOXIDE 32 MMOL/L (21-32); CHLORIDE 104 MMOL/L (98-107); CREATININE 0.9 MG/DL (0.55-1.30); POTASSIUM 4.3 MMOL/L (3.5-5.1); SODIUM 142 MMOL/L (136-145)
[2019-02-28] MEDS ORDERED: Losartan 50mg tab ORAL SCH (09:00)
[2019-02-28] MEDS: Cefepime HCl 2 GM in D5W 110 ML IV SCH ×2 (09:05→21:01)
[2019-02-28] MEDS: Heparin 5000 units/ml inj SUBQ SCH ×2 (09:06→21:03)
--- NOTE | 2019-02-28 11:00 | NUR ---
NURSE NOTES: Patient stated in the removal of wrist restraints and cooper. Discussed the patient on the need of the cooper and restraints. will continue discussion and education.
--- NOTE | 2019-02-28 11:07 | Pulmonology Progress Note ---
Assessment/Plan Problems: (1) Acute metabolic encephalopathy (2) UTI (urinary tract infection) (3) Diabetes mellitus (4) History of hypertension Assessment/Plan [place] catheter is in heart rate and blood pressure are more stable. f/u cultures continue abx sliding scale diabetic diet dvt prophylaxis Subjective ROS Limited/Unobtainable: No Constitutional: Reports: no symptoms HEENT: Repors: no symptoms Allergies: Coded Allergies: No Known Allergies (Unverified , 02/26/19) Objective Last 24 Hour Vital Signs Date Time Temp Pulse Resp B/P (MAP) Pulse Ox O2 Delivery O2 Flow Rate FiO2 02/28/19 09:05 130/58 02/28/19 09:05 74 130/58 02/28/19 09:00 Nasal Cannula 2.0 02/28/19 08:00 97.9 74 20 130/58 (82) 95 02/28/19 04:00 98.0 78 18 130/60 (83) 95 02/28/19 04:00 92 02/28/19 00:00 92 02/28/19 00:00 98.0 105 20 108/73 (85) 99 02/27/19 20:38 97 02/27/19 20:00 99.1 108 20 136/70 (92) 96 02/27/19 19:59 Nasal Cannula 4.0 02/27/19 18:42 185/84 02/27/19 12:59 86 166/84 02/27/19 12:00 98.2 86 20 166/84 (111) 94 Intake and Output 02/27/19 02/28/19 19:00 07:00 Intake Total 240 ml Output Total 100 ml 2600 ml Balance 140 ml -2600 ml Intake Oral 240 ml Output Urine Total 100 ml 2600 ml General Appearance: WD/WN HEENT: normocephalic, atraumatic Respiratory/Chest: chest wall non-tender, lungs clear Cardiovascular: normal peripheral pulses, normal rate Abdomen: normal bowel sounds, soft, non tender Microbiology Date/Time Source Procedure Growth Status 02/26/19 10:53 Blood Blood Culture - Preliminary NO GROWTH AFTER 24 HOURS Resulted 02/26/19 10:40 Blood Blood Culture - Preliminary NO GROWTH AFTER 24 HOURS Resulted 02/26/19 01:45 Nose MRSA Culture - Final NO METHICILLIN RESISTANT STAPH AUREUS... Complete 02/26/19 01:44 Urine,Clean Catch Urine Culture - Preliminary NO GROWTH AFTER 24 HOURS Resulted Laboratory Tests 02/28/19 05:20: White Blood Count 14.1H, Red Blood Count 4.81, Hemoglobin 13.1L, Hematocrit 40.9L, Mean Corpuscular Volume 85, Mean Corpuscular Hemoglobin 27.3, Mean Corpuscular Hemoglobin Concent 32.1, Red Cell Distribution Width 14.1, Platelet Count 306, Mean Platelet Volume 6.3L, Neutrophils (%) (Auto) 76.5H, Lymphocytes (%) (Auto) 16.1L, Monocytes (%) (Auto) 5.4, Eosinophils (%) (Auto) 1.3, Basophils (%) (Auto) 0.8, Sodium Level 142, Potassium Level 4.3, Chloride Level 104, Carbon Dioxide Level 32, Anion Gap 6, Blood Urea Nitrogen 10, Creatinine 0.9, Estimat Glomerular Filtration Rate , Glucose Level 260H, Calcium Level 8.8 Current Medications Medications (Trade) Dose Ordered Sig/David Route PRN Reason Start Time Stop Time Status Last Admin Dose Admin Acetaminophen (Tylenol) 650 mg Q4H PRN ORAL T>100.5 02/27/19 21:15 03/28/19 09:14 Albuterol/ Ipratropium (Albuterol/ Ipratropium) 3 ml Q4H PRN HHN Shortness of Breath 02/27/19 21:15 03/03/19 09:14 Amlodipine Besylate (Norvasc) 5 mg DAILY ORAL 02/28/19 09:00 03/29/19 12:29 02/28/19 09:05 Cefepime HCl 2 gm/ Dextrose 110 ml @ 220 mls/hr Q12H IV 02/27/19 21:00 03/05/19 09:59 02/28/19 09:05 Clonidine HCl (Catapres Tab) 0.1 mg Q6H PRN ORAL For SBP >160 02/27/19 21:00 03/29/19 20:59 Finasteride (Proscar) 5 mg DAILY ORAL 02/28/19 09:00 03/29/19 08:59 02/28/19 09:05 Haloperidol Lactate (Haldol) 2.5 mg Q6H PRN IM AGITATION 02/27/19 21:30 03/28/19 09:29 Heparin Sodium (Porcine) (Heparin 5000 units/ml) 5,000 units EVERY 12 HOURS SUBQ 02/27/19 21:00 03/28/19 20:59 02/28/19 09:06 Hydralazine HCl (Apresoline) 5 mg Q4H PRN IV For High Blood Pressure 02/27/19 21:00 03/29/19 20:59 Losartan Potassium (Cozaar) 50 mg DAILY ORAL 02/28/19 09:00 03/29/19 08:59 02/28/19 09:05 Morphine Sulfate (Morphine Sulfate) 2 mg Q4H PRN IVP PAIN 4-10 02/27/19 21:15 03/05/19 09:14 Ondansetron HCl (Zofran) 4 mg Q6H PRN IVP Nausea & Vomiting 02/27/19 21:15 03/28/19 09:14 Phenazopyridine HCl (Pyridium) 100 mg DAILYPRN PRN ORAL dysuria/pain on urination 02/28/19 09:15 03/28/19 09:14 Polyethylene Glycol (Miralax) 17 gm DAILYPRN PRN ORAL Constipation 02/27/19 21:00 03/29/19 20:59 Tamsulosin HCl (Flomax) 0.4 mg QHS ORAL 02/27/19 21:00 03/29/19 20:59 Temazepam (Restoril) 15 mg HSPRN PRN ORAL Insomnia 02/27/19 21:00 03/05/19 20:59 Justino Durant MD Feb 28, 2019 11:07
[2019-02-28] MEDS ORDERED: Albuterol/Ipratropium 3ml neb HHN PRN ×2 (11:30→23:30)
--- NOTE | 2019-02-28 12:23 | Infectious Diseases Prog Note ---
Assessment/Plan Assessment/Plan Assessment: Acute encephalopathy Afebrile Mild leukocytosis, increased -CXR No acute cardiopulmonary disease. Probable UTI -u/a wbc 30-40, nit neg, leuk +2; ucx NTD -Bcx NTD DM HTN HLD BPH SN[facility] resident Plan: -Continue empiric Cefepime #3 pending UCx -02/27 SP IV Vancomycin #2 -02/26 SP Ceftriaxone x1 -f/u cx -Monitor CBC/CMP, temperatures Thank you for this consultation. Will continue to follow along with you. Discussed with RN Subjective Allergies: Coded Allergies: No Known Allergies (Unverified , 02/26/19) Subjective afebrile wbc increased Bcx NTD Objective Vital Signs Last 24 Hour Vital Signs Date Time Temp Pulse Resp B/P (MAP) Pulse Ox O2 Delivery O2 Flow Rate FiO2 02/28/19 12:00 97.7 94 20 148/81 (103) 95 02/28/19 09:05 130/58 02/28/19 09:05 74 130/58 02/28/19 09:00 Nasal Cannula 2.0 02/28/19 08:00 97.9 74 20 130/58 (82) 95 02/28/19 07:59 71 02/28/19 04:00 98.0 78 18 130/60 (83) 95 02/28/19 04:00 92 02/28/19 00:00 92 02/28/19 00:00 98.0 105 20 108/73 (85) 99 02/27/19 20:38 97 02/27/19 20:00 99.1 108 20 136/70 (92) 96 02/27/19 19:59 Nasal Cannula 4.0 02/27/19 18:42 185/84 02/27/19 12:59 86 166/84 Height (Feet): 5 Height (Inches): 7.00 Weight (Pounds): 200 Objective General Appearance: WD/WN Lines, tubes and drains: peripheral, PICC HEENT: normocephalic, atraumatic Neck: non-tender, supple Respiratory/Chest: chest wall non-tender, lungs clear Abdomen: normal bowel sounds, non tender Genitourinary/Rectal: normal genital exam Extremities: normal range of motion Skin Exam: normal pigmentation Neurologic: occupational health rn II-XII grossly normal Microbiology Date/Time Source Procedure Growth Status 02/26/19 10:53 Blood Blood Culture - Preliminary NO GROWTH AFTER 24 HOURS Resulted 02/26/19 10:40 Blood Blood Culture - Preliminary NO GROWTH AFTER 24 HOURS Resulted 02/26/19 01:45 Nose MRSA Culture - Final NO METHICILLIN RESISTANT STAPH AUREUS... Complete 02/26/19 01:44 Urine,Clean Catch Urine Culture - Preliminary NO GROWTH AFTER 24 HOURS Resulted Laboratory Tests Test 02/28/19 05:20 White Blood Count 14.1 K/UL (4.8-10.8) H Red Blood Count 4.81 M/UL (4.70-6.10) Hemoglobin 13.1 G/DL (14.2-18.0) L Hematocrit 40.9 % (42.0-52.0) L Mean Corpuscular Volume 85 FL (80-99) Mean Corpuscular Hemoglobin 27.3 PG (27.0-31.0) Mean Corpuscular Hemoglobin Concent 32.1 G/DL (32.0-36.0) Red Cell Distribution Width 14.1 % (11.6-14.8) Platelet Count 306 K/UL (150-450) Mean Platelet Volume 6.3 FL (6.5-10.1) L Neutrophils (%) (Auto) 76.5 % (45.0-75.0) H Lymphocytes (%) (Auto) 16.1 % (20.0-45.0) L Monocytes (%) (Auto) 5.4 % (1.0-10.0) Eosinophils (%) (Auto) 1.3 % (0.0-3.0) Basophils (%) (Auto) 0.8 % (0.0-2.0) Sodium Level 142 MMOL/L (136-145) Potassium Level 4.3 MMOL/L (3.5-5.1) Chloride Level 104 MMOL/L (98-107) Carbon Dioxide Level 32 MMOL/L (21-32) Anion Gap 6 mmol/L (5-15) Blood Urea Nitrogen 10 mg/dL (7-18) Creatinine 0.9 MG/DL (0.55-1.30) Estimat Glomerular Filtration Rate mL/min (>60) Glucose Level 260 MG/DL (74-106) H Calcium Level 8.8 MG/DL (8.5-10.1) Current Medications Medications (Trade) Dose Ordered Sig/David Route PRN Reason Start Time Stop Time Status Last Admin Dose Admin Acetaminophen (Tylenol) 650 mg Q4H PRN ORAL T>100.5 02/27/19 21:15 03/28/19 09:14 Albuterol/ Ipratropium (Albuterol/ Ipratropium) 3 ml Q4H PRN HHN Shortness of Breath 02/28/19 11:30 03/05/19 11:29 Amlodipine Besylate (Norvasc) 5 mg DAILY ORAL 02/28/19 09:00 03/29/19 12:29 02/28/19 09:05 Cefepime HCl 2 gm/ Dextrose 110 ml @ 220 mls/hr Q12H IV 02/27/19 21:00 03/05/19 09:59 02/28/19 09:05 Clonidine HCl (Catapres Tab) 0.1 mg Q6H PRN ORAL For SBP >160 02/27/19 21:00 03/29/19 20:59 Finasteride (Proscar) 5 mg DAILY ORAL 02/28/19 09:00 03/29/19 08:59 02/28/19 09:05 Haloperidol Lactate (Haldol) 2.5 mg Q6H PRN IM AGITATION 02/27/19 21:30 03/28/19 09:29 Heparin Sodium (Porcine) (Heparin 5000 units/ml) 5,000 units EVERY 12 HOURS SUBQ 02/27/19 21:00 03/28/19 20:59 02/28/19 09:06 Hydralazine HCl (Apresoline) 5 mg Q4H PRN IV For High Blood Pressure 02/27/19 21:00 03/29/19 20:59 Losartan Potassium (Cozaar) 50 mg DAILY ORAL 02/28/19 09:00 03/29/19 08:59 02/28/19 09:05 Morphine Sulfate (Morphine Sulfate) 2 mg Q4H PRN IVP PAIN 4-10 02/27/19 21:15 03/05/19 09:14 Ondansetron HCl (Zofran) 4 mg Q6H PRN IVP Nausea & Vomiting 02/27/19 21:15 03/28/19 09:14 Phenazopyridine HCl (Pyridium) 100 mg DAILYPRN PRN ORAL dysuria/pain on urination 02/28/19 09:15 03/28/19 09:14 Polyethylene Glycol (Miralax) 17 gm DAILYPRN PRN ORAL Constipation 02/27/19 21:00 03/29/19 20:59 Tamsulosin HCl (Flomax) 0.4 mg QHS ORAL 02/27/19 21:00 03/29/19 20:59 Temazepam (Restoril) 15 mg HSPRN PRN ORAL Insomnia 02/27/19 21:00 03/05/19 20:59 Sally Guerrier M.D. Feb 28, 2019 12:23
--- NOTE | 2019-02-28 14:00 | NUR ---
NURSE NOTES: Patient has been noncompliant in changing sides. Wound care was done. legs elevated. The patient still kicks the pillows and blankets off the floor. Patient made attempts to remove optifoam. Will continue education teaching on turning and skin care.
--- NOTE | 2019-02-28 15:24 | NUR ---
NURSE NOTES:WOUND CARE NOTES:Pt presented on admission with multiple partial thickness pressure injuries with surrounding non-blanching erythema that is indurated. Non-blanching erythema with fluctuance R heel. Non-blanching erythema with fluctuance L heel. Dry scabbed wound noted to posterior L tibia. No elevation in skin temp, erythema or induration periwound. No other skin concerns noted. Pt was cooperative during wound assessment but Primary nurse stated pt can be resistive to care. Tx.Plan: Apply Moisture Barrier Paste to R and L buttocks. Cover with Optifoam drsg. Change every 3 days and prn. Apply Cavilon Skin Barrier to both heels. Cover each heel with Optifoam drsg. Change every 7 days and prn. Cover wound posterior L tibia with Optifoam drsg. Change every 7 days and prn. Reposition at least every 2hours or as tolerated. Off-load heels with pillow.
--- NOTE | 2019-02-28 15:54 | Internal Med Progress Note ---
Subjective Date of Service: Feb 28, 2019 Physician Name Krishnamurthy,Allen Attending Physician Matthew Anders MD Current Medications Medications (Trade) Dose Ordered Sig/David Route PRN Reason Start Time Stop Time Status Last Admin Dose Admin Acetaminophen (Tylenol) 650 mg Q4H PRN ORAL T>100.5 02/27/19 21:15 03/28/19 09:14 Albuterol/ Ipratropium (Albuterol/ Ipratropium) 3 ml Q4H PRN HHN Shortness of Breath 02/28/19 11:30 03/05/19 11:29 Amlodipine Besylate (Norvasc) 5 mg DAILY ORAL 02/28/19 09:00 03/29/19 12:29 02/28/19 09:05 Cefepime HCl 2 gm/ Dextrose 110 ml @ 220 mls/hr Q12H IV 02/27/19 21:00 03/05/19 09:59 02/28/19 09:05 Clonidine HCl (Catapres Tab) 0.1 mg Q6H PRN ORAL For SBP >160 02/27/19 21:00 03/29/19 20:59 Finasteride (Proscar) 5 mg DAILY ORAL 02/28/19 09:00 03/29/19 08:59 02/28/19 09:05 Haloperidol Lactate (Haldol) 2.5 mg Q6H PRN IM AGITATION 02/27/19 21:30 03/28/19 09:29 Heparin Sodium (Porcine) (Heparin 5000 units/ml) 5,000 units EVERY 12 HOURS SUBQ 02/27/19 21:00 03/28/19 20:59 02/28/19 09:06 Hydralazine HCl (Apresoline) 5 mg Q4H PRN IV For High Blood Pressure 02/27/19 21:00 03/29/19 20:59 Losartan Potassium (Cozaar) 50 mg DAILY ORAL 02/28/19 09:00 03/29/19 08:59 02/28/19 09:05 Morphine Sulfate (Morphine Sulfate) 2 mg Q4H PRN IVP PAIN 4-10 02/27/19 21:15 03/05/19 09:14 Ondansetron HCl (Zofran) 4 mg Q6H PRN IVP Nausea & Vomiting 02/27/19 21:15 03/28/19 09:14 Phenazopyridine HCl (Pyridium) 100 mg DAILYPRN PRN ORAL dysuria/pain on urination 02/28/19 09:15 03/28/19 09:14 Polyethylene Glycol (Miralax) 17 gm DAILYPRN PRN ORAL Constipation 02/27/19 21:00 03/29/19 20:59 Tamsulosin HCl (Flomax) 0.4 mg QHS ORAL 02/27/19 21:00 03/29/19 20:59 Temazepam (Restoril) 15 mg HSPRN PRN ORAL Insomnia 02/27/19 21:00 03/05/19 20:59 Allergies: Coded Allergies: No Known Allergies (Unverified , 02/26/19) ROS Limited/Unobtainable: Yes Subjective 78 YO M admitted with altered mental status. Cover for Int Med-Dr Anders Objective Last Vital Signs Date Time Temp Pulse Resp B/P (MAP) Pulse Ox O2 Delivery O2 Flow Rate FiO2 02/28/19 12:00 97.7 94 20 148/81 (103) 95 02/28/19 09:00 Nasal Cannula 2.0 02/28/19 07:00 28 Laboratory Tests Test 02/28/19 05:20 White Blood Count 14.1 K/UL (4.8-10.8) H Red Blood Count 4.81 M/UL (4.70-6.10) Hemoglobin 13.1 G/DL (14.2-18.0) L Hematocrit 40.9 % (42.0-52.0) L Mean Corpuscular Volume 85 FL (80-99) Mean Corpuscular Hemoglobin 27.3 PG (27.0-31.0) Mean Corpuscular Hemoglobin Concent 32.1 G/DL (32.0-36.0) Red Cell Distribution Width 14.1 % (11.6-14.8) Platelet Count 306 K/UL (150-450) Mean Platelet Volume 6.3 FL (6.5-10.1) L Neutrophils (%) (Auto) 76.5 % (45.0-75.0) H Lymphocytes (%) (Auto) 16.1 % (20.0-45.0) L Monocytes (%) (Auto) 5.4 % (1.0-10.0) Eosinophils (%) (Auto) 1.3 % (0.0-3.0) Basophils (%) (Auto) 0.8 % (0.0-2.0) Sodium Level 142 MMOL/L (136-145) Potassium Level 4.3 MMOL/L (3.5-5.1) Chloride Level 104 MMOL/L (98-107) Carbon Dioxide Level 32 MMOL/L (21-32) Anion Gap 6 mmol/L (5-15) Blood Urea Nitrogen 10 mg/dL (7-18) Creatinine 0.9 MG/DL (0.55-1.30) Estimat Glomerular Filtration Rate mL/min (>60) Glucose Level 260 MG/DL (74-106) H Calcium Level 8.8 MG/DL (8.5-10.1) Microbiology Date/Time Source Procedure Growth Status 02/26/19 10:53 Blood Blood Culture - Preliminary NO GROWTH AFTER 24 HOURS Resulted 02/26/19 10:40 Blood Blood Culture - Preliminary NO GROWTH AFTER 24 HOURS Resulted 02/26/19 01:45 Nose MRSA Culture - Final NO METHICILLIN RESISTANT STAPH AUREUS... Complete 02/26/19 01:44 Urine,Clean Catch Urine Culture - Preliminary NO GROWTH AFTER 24 HOURS Resulted Intake and Output 02/27/19 02/28/19 19:00 07:00 Intake Total 240 ml Output Total 100 ml 2600 ml Balance 140 ml -2600 ml Intake Oral 240 ml Output Urine Total 100 ml 2600 ml Objective PHYSICAL EXAMINATION: GENERAL: The patient is a well-developed and well-nourished male, in no apparent distress. HEENT: Eyes, pupils are equal and responsive to light and accommodation. Extraocular movements are intact. NECK: Supple without lymphadenopathy. CHEST: Lungs are clear to auscultation bilaterally without wheezes or rales. CARDIOVASCULAR: Regular rhythm and rate. S1, S2 normal without murmurs, rubs, or gallops. ABDOMEN: Soft, nontender, and nondistended. Positive bowel sounds. No evidence of hepatosplenomegaly. Currently, no rebound or guarding noted. EXTREMITIES: Negative for clubbing, cyanosis, or edema. RECTAL/GENITAL: Refused. NEUROLOGIC: Cranial nerves II through XII are grossly intact without focal deficits. Motor strength is 5/5 bilaterally. Deep tendon reflexes are 2+ plantar. Assessment/Plan Assessment/Plan ASSESSMENT: This is a 78-year-old male with: 1. Altered mental status. 2. Urinary tract infection. 3. Diabetes type 2. 4. Hypertension. 5. Hypercholesteremia. TREATMENT: 1. Altered mental status. This may be secondary to urinary tract infection. 2. Urinary tract infection. The patient has been started empirically on vancomycin and cefepime. Await urine culture results. 3. Diabetes type 2. NovoLog sliding scale has been instituted. 4. Hypertension. Continue losartan as above. 5. Hypercholesterolemia. Continue atorvastatin as above. 6. ID=Allen Barone MD Feb 28, 2019 15:54
--- NOTE | 2019-02-28 19:20 | NUR ---
HAND-OFF: Report given to RACHEL Thomason. Patient agree to have pictures of heels.
--- NOTE | 2019-02-28 19:25 | NUR ---
NURSE NOTES: Received report from Yue Baldwin RN. Patient in bed AAO X2-3 with no complaints of acute pain or discomfort noted at this time. IV line intact and patent SL with continuous cardiac monitoring per protocol. FC for retention observed; tubing intact, patent and draining. Non-behavioral Bilateral soft wrist restraints in place for episodes of pulling out tubes and trying to get out of bed the previous shift. Safety precaution in place; siderails X3 up, call light within reach, bed in lowest position, brakes and alarm on at all times. Needs and wants anticipated and attended, will continue plan of care and monitor for any changes noted.
[2019-02-28] MEDS: Tamsulosin 0.4mg cap ORAL SCH (21:01)
--- NOTE | 2019-02-28 23:20 | NUR ---
TRANSFER TO FLOOR: Patient transferred to [facility], per Heidi Anders MD. Report, Belongings, and medications given to Forrest Calvillo RN. Family and or S/O informed of transfer. Patient made comfortable in bed with no complaints of acute pain or discomfort noted. Off front desk monitor. Endorsed plan of care.
--- NOTE | 2019-02-28 23:20 | NUR ---
NURSE NOTES: Patient received from tele, obtained report from RACHEL Thomason. IV intact and patent on RH. Val[place] to gravity, draining clear yellow urine. Soft restraints on. Assessed sacrum redness, photos taken today. Heel protectors on, repositioned for comfort. Patient alert, oriented x3. Call light within reach, bed in low position, locked, side rails up x3. Will continue to monitor.
[2019-03-01] MEDS ORDERED: Morphine Sulfate 2mg/ml Inj(IV/IM USE ONLY) IVP PRN (01:15)
--- NOTE | 2019-03-01 02:40 | NUR ---
NURSE NOTES: Called RT for prn resp treatment as patient was short of breath with increased work of breathing. Lung sounds diminished.
[2019-03-01] MEDS ORDERED: Haloperidol 5mg/ml Inj IM PRN (03:30)
[2019-03-01 05:00] VITALS: BP 107/60
[2019-03-01 05:47] LABS: BASOPHILS % (AUTO) 0.8 % (0.0-2.0); EOSINOPHILS % (AUTO) 3.2 % (0.0-3.0); HEMATOCRIT 35.2 % (42.0-52.0); HEMOGLOBIN 11.3 G/DL (14.2-18.0); LYMPHOCYTES % (AUTO) 17.5 % (20.0-45.0); MEAN CORPUSCULAR VOLUME 85 FL (80-99); MONOCYTES % (AUTO) 7.6 % (1.0-10.0); NEUTROPHILS % (AUTO) 70.8 % (45.0-75.0); PLATELET COUNT 281 K/UL (150-450); RED BLOOD COUNT 4.15 M/UL (4.70-6.10); RED CELL DISTRIBUTION WIDTH 14.2 % (11.6-14.8); WHITE BLOOD COUNT 11.9 K/UL (4.8-10.8)
[2019-03-01 06:21] LABS: ALANINE AMINOTRANSFERASE 8 U/L (12-78); ALBUMIN 2.4 G/DL (3.4-5.0); ALBUMIN/GLOBULIN RATIO 0.6 (1.0-2.7); ALKALINE PHOSPHATASE 21 U/L (46-116); ANION GAP 3 mmol/L (5-15); ASPARTATE AMINO TRANSFERASE 11 U/L (15-37); BILIRUBIN,TOTAL 0.4 MG/DL (0.2-1.0); BLOOD UREA NITROGEN 11 mg/dL (7-18); CALCIUM 8.9 MG/DL (8.5-10.1); CARBON DIOXIDE 34 MMOL/L (21-32); CHLORIDE 103 MMOL/L (98-107); CREATININE 0.8 MG/DL (0.55-1.30); PHOSPHORUS 3.5 MG/DL (2.5-4.9); SODIUM 140 MMOL/L (136-145)
--- NOTE | 2019-03-01 07:35 | NUR ---
HAND-OFF: Report given to RACHEL Hdz. Patient in no distress.
--- NOTE | 2019-03-01 07:40 | NUR ---
NURSE NOTES: Patient lying in bed awake. No complain of pain or distress at this time. IV dressing intact and dry. Remain on soft restraints. Skin intact and dry under restraints. Bed lowest position. Call light within reach. Will continue to monitor.
[2019-03-01 08:00] VITALS: BP 134/79
[2019-03-01] MEDS ORDERED: Heparin 5000 units/ml inj SUBQ SCH (09:00)
[2019-03-01] MEDS ORDERED: Cefepime HCl 2 GM in D5W 110 ML IV SCH (09:00)
[2019-03-01] MEDS ORDERED: Losartan 50mg tab ORAL SCH (09:00)
--- NOTE | 2019-03-01 10:43 | NUR ---
RD ASSESSMENT & RECOMMENDATIONS SEE CARE ACTIVITY FOR COMPLETE ASSESSMENT DAILY ESTIMATED NEEDS: Needs based on cardiac, wounds 81.6kg adj 25-30 kcals/kg 2991-8033 total kcals 1.25-1.5 g protein/kg 102-122 g total protein 25-30 mL/kg 9146-1180 total fluid mLs NUTRITION DIAGNOSIS: 1) Increased pro needs r/t wound healing as evidenced by pt w/ multiple partial thickness wounds, refer to wound care eval. 2) Altered nutrition related lab values r/t diabetes as evidenced by elev fasting glucose (169-260) (CURRENT DIET: Regular) PO DIET RECOMMENDATIONS: CCHO MED + LOW NA / SOFT EASY CHEW ADDITIONAL RECOMMENDATIONS: 1) Rec A1C for eval 2) Hypoglycemics for BG control/ niss 3) Mg low-> check lytes daily, replete as needed 4) Send snacks in b/w meals w/ current variable po intake 5) Wound care: add ROBERT BID + Vit C 250mg daily
[2019-03-01 12:00] VITALS: BP 106/57
--- NOTE | 2019-03-01 12:08 | Pulmonology Progress Note ---
Assessment/Plan Problems: (1) Acute metabolic encephalopathy (2) UTI (urinary tract infection) (3) Diabetes mellitus (4) History of hypertension Assessment/Plan Valiente catheter is in heart rate and blood pressure are more stable. f/u cultures, all negative so far continue abx as per ID sliding scale diabetic diet dvt prophylaxis Subjective ROS Limited/Unobtainable: Yes Constitutional: Reports: no symptoms HEENT: Repors: no symptoms Allergies: Coded Allergies: No Known Allergies (Unverified , 02/26/19) Objective Last 24 Hour Vital Signs Date Time Temp Pulse Resp B/P (MAP) Pulse Ox O2 Delivery O2 Flow Rate FiO2 03/01/19 09:15 77 134/79 03/01/19 09:14 134/79 03/01/19 09:00 Nasal Cannula 2.0 03/01/19 08:00 98.4 77 18 134/79 (97) 99 03/01/19 07:58 82 20 95 Nasal Cannula 2.0 28 03/01/19 07:58 95 Nasal Cannula 2.0 28 03/01/19 05:00 98.3 75 19 107/60 (76) 93 03/01/19 02:52 88 20 98 Nasal Cannula 2.0 28 03/01/19 02:41 88 20 95 Nasal Cannula 2.0 28 02/28/19 23:33 93 02/28/19 23:32 98.8 89 18 130/63 (85) 93 02/28/19 23:30 Nasal Cannula 2.0 02/28/19 21:00 Nasal Cannula 2.0 02/28/19 20:00 97.3 91 23 147/77 (100) 94 02/28/19 19:38 96 Nasal Cannula 2.0 28 02/28/19 19:38 81 20 96 Nasal Cannula 2.0 28 02/28/19 16:00 96.4 77 18 129/61 (83) 94 Intake and Output 02/28/19 03/01/19 19:00 07:00 Intake Total 630 ml 240 ml Output Total 525 ml 350 ml Balance 105 ml -110 ml Intake Oral 630 ml 240 ml Output Urine Total 525 ml 350 ml General Appearance: WD/WN HEENT: normocephalic, anicteric Respiratory/Chest: chest wall non-tender, lungs clear Cardiovascular: normal peripheral pulses, normal rate, regular rhythm Abdomen: normal bowel sounds, soft, non tender Genitourinary: normal external genitalia Skin: no lesions Laboratory Tests 03/01/19 05:05: White Blood Count 11.9H, Red Blood Count 4.15L, Hemoglobin 11.3L, Hematocrit 35.2L, Mean Corpuscular Volume 85, Mean Corpuscular Hemoglobin 27.3, Mean Corpuscular Hemoglobin Concent 32.1, Red Cell Distribution Width 14.2, Platelet Count 281, Mean Platelet Volume 6.3L, Neutrophils (%) (Auto) 70.8, Lymphocytes ( %) (Auto) 17.5L, Monocytes (%) (Auto) 7.6, Eosinophils (%) (Auto) 3.2H, Basophils (%) (Auto) 0.8, Erythrocyte Sedimentation Rate 33H, Sodium Level 140, Potassium Level 4.0, Chloride Level 103, Carbon Dioxide Level 34H, Anion Gap 3L , Blood Urea Nitrogen 11, Creatinine 0.8, Estimat Glomerular Filtration Rate , Glucose Level 241H, Calcium Level 8.9, Phosphorus Level 3.5, Magnesium Level 1.5L, Total Bilirubin 0.4, Aspartate Amino Transf (AST/SGOT) 11L, Alanine Aminotransferase (ALT/SGPT) 8L, Alkaline Phosphatase 21L, C-Reactive Protein, Quantitative 14.9H, Total Protein 6.3L, Albumin 2.4L, Globulin 3.9, Albumin/ Globulin Ratio 0.6L Current Medications Medications (Trade) Dose Ordered Sig/David Route PRN Reason Start Time Stop Time Status Last Admin Dose Admin Acetaminophen (Tylenol) 650 mg Q4H PRN ORAL T>100.5 03/01/19 01:15 03/28/19 09:14 Albuterol/ Ipratropium (Albuterol/ Ipratropium) 3 ml Q4H PRN HHN Shortness of Breath 02/28/19 23:30 03/05/19 11:29 03/01/19 02:41 Amlodipine Besylate (Norvasc) 5 mg DAILY ORAL 03/01/19 09:00 03/29/19 12:29 03/01/19 09:15 Cefepime HCl 2 gm/ Dextrose 110 ml @ 220 mls/hr Q12H IV 03/01/19 09:00 03/05/19 09:59 03/01/19 09:14 Clonidine HCl (Catapres Tab) 0.1 mg Q6H PRN ORAL For SBP >160 03/01/19 03:00 03/29/19 20:59 Finasteride (Proscar) 5 mg DAILY ORAL 03/01/19 09:00 03/29/19 08:59 03/01/19 09:15 Haloperidol Lactate (Haldol) 2.5 mg Q6H PRN IM AGITATION 03/01/19 03:30 03/28/19 09:29 Heparin Sodium (Porcine) (Heparin 5000 units/ml) 5,000 units EVERY 12 HOURS SUBQ 03/01/19 09:00 03/28/19 20:59 03/01/19 09:22 Losartan Potassium (Cozaar) 50 mg DAILY ORAL 03/01/19 09:00 03/29/19 08:59 03/01/19 09:14 Morphine Sulfate (Morphine Sulfate) 2 mg Q4H PRN IVP PAIN 4-10 03/01/19 01:15 03/05/19 09:14 Ondansetron HCl (Zofran) 4 mg Q6H PRN IVP Nausea & Vomiting 03/01/19 03:15 03/28/19 09:14 Phenazopyridine HCl (Pyridium) 100 mg DAILYPRN PRN ORAL dysuria/pain on urination 03/01/19 09:15 03/28/19 09:14 Polyethylene Glycol (Miralax) 17 gm DAILYPRN PRN ORAL Constipation 03/01/19 21:00 03/29/19 20:59 Tamsulosin HCl (Flomax) 0.4 mg QHS ORAL 03/01/19 21:00 03/29/19 20:59 Temazepam (Restoril) 15 mg HSPRN PRN ORAL Insomnia 03/01/19 21:00 03/05/19 20:59 Justino Durant MD Mar 01, 2019 12:08
--- NOTE | 2019-03-01 12:12 | NUR ---
NURSE NOTES: Spoke to regarding Valiente catheter and new order received. Order read back and carried out.
--- NOTE | 2019-03-01 12:32 | Internal Med Progress Note ---
Subjective Date of Service: Mar 01, 2019 Physician Name YessyAllen Attending Physician Matthew Anders MD Current Medications Medications (Trade) Dose Ordered Sig/David Route PRN Reason Start Time Stop Time Status Last Admin Dose Admin Acetaminophen (Tylenol) 650 mg Q4H PRN ORAL T>100.5 03/01/19 01:15 03/28/19 09:14 Albuterol/ Ipratropium (Albuterol/ Ipratropium) 3 ml Q4H PRN HHN Shortness of Breath 02/28/19 23:30 03/05/19 11:29 03/01/19 02:41 Amlodipine Besylate (Norvasc) 5 mg DAILY ORAL 03/01/19 09:00 03/29/19 12:29 03/01/19 09:15 Cefepime HCl 2 gm/ Dextrose 110 ml @ 220 mls/hr Q12H IV 03/01/19 09:00 03/05/19 09:59 03/01/19 09:14 Clonidine HCl (Catapres Tab) 0.1 mg Q6H PRN ORAL For SBP >160 03/01/19 03:00 03/29/19 20:59 Finasteride (Proscar) 5 mg DAILY ORAL 03/01/19 09:00 03/29/19 08:59 03/01/19 09:15 Haloperidol Lactate (Haldol) 2.5 mg Q6H PRN IM AGITATION 03/01/19 03:30 03/28/19 09:29 Heparin Sodium (Porcine) (Heparin 5000 units/ml) 5,000 units EVERY 12 HOURS SUBQ 03/01/19 09:00 03/28/19 20:59 03/01/19 09:22 Losartan Potassium (Cozaar) 50 mg DAILY ORAL 03/01/19 09:00 03/29/19 08:59 03/01/19 09:14 Morphine Sulfate (Morphine Sulfate) 2 mg Q4H PRN IVP PAIN 4-10 03/01/19 01:15 03/05/19 09:14 Ondansetron HCl (Zofran) 4 mg Q6H PRN IVP Nausea & Vomiting 03/01/19 03:15 03/28/19 09:14 Phenazopyridine HCl (Pyridium) 100 mg DAILYPRN PRN ORAL dysuria/pain on urination 03/01/19 09:15 9/10/19 09:14 Polyethylene Glycol (Miralax) 17 gm DAILYPRN PRN ORAL Constipation 03/01/19 21:00 03/29/19 20:59 Tamsulosin HCl (Flomax) 0.4 mg QHS ORAL 03/01/19 21:00 03/29/19 20:59 Temazepam (Restoril) 15 mg HSPRN PRN ORAL Insomnia 03/01/19 21:00 03/05/19 20:59 Allergies: Coded Allergies: No Known Allergies (Unverified , 02/26/19) ROS Limited/Unobtainable: Yes Subjective 78 YO M admitted with altered mental status. Cover for Int Med-Dr Anders Objective Last Vital Signs Date Time Temp Pulse Resp B/P (MAP) Pulse Ox O2 Delivery O2 Flow Rate FiO2 03/01/19 09:15 77 134/79 03/01/19 09:00 Nasal Cannula 2.0 03/01/19 08:00 98.4 18 99 03/01/19 07:58 28 Laboratory Tests Test 03/01/19 05:05 White Blood Count 11.9 K/UL (4.8-10.8) H Red Blood Count 4.15 M/UL (4.70-6.10) L Hemoglobin 11.3 G/DL (14.2-18.0) L Hematocrit 35.2 % (42.0-52.0) L Mean Corpuscular Volume 85 FL (80-99) Mean Corpuscular Hemoglobin 27.3 PG (27.0-31.0) Mean Corpuscular Hemoglobin Concent 32.1 G/DL (32.0-36.0) Red Cell Distribution Width 14.2 % (11.6-14.8) Platelet Count 281 K/UL (150-450) Mean Platelet Volume 6.3 FL (6.5-10.1) L Neutrophils (%) (Auto) 70.8 % (45.0-75.0) Lymphocytes (%) (Auto) 17.5 % (20.0-45.0) L Monocytes (%) (Auto) 7.6 % (1.0-10.0) Eosinophils (%) (Auto) 3.2 % (0.0-3.0) H Basophils (%) (Auto) 0.8 % (0.0-2.0) Erythrocyte Sedimentation Rate 33 MM/HR (0-20) H Sodium Level 140 MMOL/L (136-145) Potassium Level 4.0 MMOL/L (3.5-5.1) Chloride Level 103 MMOL/L (98-107) Carbon Dioxide Level 34 MMOL/L (21-32) H Anion Gap 3 mmol/L (5-15) L Blood Urea Nitrogen 11 mg/dL (7-18) Creatinine 0.8 MG/DL (0.55-1.30) Estimat Glomerular Filtration Rate mL/min (>60) Glucose Level 241 MG/DL (74-106) H Calcium Level 8.9 MG/DL (8.5-10.1) Phosphorus Level 3.5 MG/DL (2.5-4.9) Magnesium Level 1.5 MG/DL (1.8-2.4) L Total Bilirubin 0.4 MG/DL (0.2-1.0) Aspartate Amino Transf (AST/SGOT) 11 U/L (15-37) L Alanine Aminotransferase (ALT/SGPT) 8 U/L (12-78) L Alkaline Phosphatase 21 U/L (46-116) L C-Reactive Protein, Quantitative 14.9 mg/dL (0.00-0.90) H Total Protein 6.3 G/DL (6.4-8.2) L Albumin 2.4 G/DL (3.4-5.0) L Globulin 3.9 g/dL Albumin/Globulin Ratio 0.6 (1.0-2.7) L Intake and Output 02/28/19 03/01/19 19:00 07:00 Intake Total 630 ml 240 ml Output Total 525 ml 350 ml Balance 105 ml -110 ml Intake Oral 630 ml 240 ml Output Urine Total 525 ml 350 ml Objective PHYSICAL EXAMINATION: GENERAL: The patient is a well-developed and well-nourished male, in no apparent distress. HEENT: Eyes, pupils are equal and responsive to light and accommodation. Extraocular movements are intact. NECK: Supple without lymphadenopathy. CHEST: Lungs are clear to auscultation bilaterally without wheezes or rales. CARDIOVASCULAR: Regular rhythm and rate. S1, S2 normal without murmurs, rubs, or gallops. ABDOMEN: Soft, nontender, and nondistended. Positive bowel sounds. No evidence of hepatosplenomegaly. Currently, no rebound or guarding noted. EXTREMITIES: Negative for clubbing, cyanosis, or edema. RECTAL/GENITAL: Refused. NEUROLOGIC: Cranial nerves II through XII are grossly intact without focal deficits. Motor strength is 5/5 bilaterally. Deep tendon reflexes are 2+ plantar. Assessment/Plan Assessment/Plan ASSESSMENT: This is a 78-year-old male with: 1. Altered mental status. 2. Urinary tract infection. 3. Diabetes type 2. 4. Hypertension. 5. Hypercholesteremia. TREATMENT: 1. Altered mental status. This may be secondary to urinary tract infection. 2. Urinary tract infection. The patient has been started empirically on vancomycin and cefepime. Await urine culture results. 3. Diabetes type 2. NovoLog sliding scale has been instituted. 4. Hypertension. Continue losartan as above. 5. Hypercholesterolemia. Continue atorvastatin as above. 6. ID=Allen Barone MD Mar 01, 2019 12:32
--- NOTE | 2019-03-01 13:02 | Infectious Diseases Prog Note ---
Assessment/Plan Assessment/Plan Assessment: Acute encephalopathy Afebrile Mild leukocytosis, improving -CXR No acute cardiopulmonary disease. Probable UTI -u/a wbc 30-40, nit neg, leuk +2; ucx p -Bcx NTD DM HTN HLD BPH SNF resident Plan: -Continue empiric Cefepime #4 pending UCx -02/27 SP IV Vancomycin #2 -02/26 SP Ceftriaxone x1 -f/u cx -Monitor CBC/CMP, temperatures Thank you for this consultation. Will continue to follow along with you. Discussed with RN Subjective Allergies: Coded Allergies: No Known Allergies (Unverified , 02/26/19) Subjective afebrile wbc improved Bcx NTD Objective Vital Signs Last 24 Hour Vital Signs Date Time Temp Pulse Resp B/P (MAP) Pulse Ox O2 Delivery O2 Flow Rate FiO2 03/01/19 12:00 97.1 89 20 106/57 (73) 100 03/01/19 09:15 77 134/79 03/01/19 09:14 134/79 03/01/19 09:00 Nasal Cannula 2.0 03/01/19 08:00 98.4 77 18 134/79 (97) 99 03/01/19 07:58 82 20 95 Nasal Cannula 2.0 28 03/01/19 07:58 95 Nasal Cannula 2.0 28 03/01/19 05:00 98.3 75 19 107/60 (76) 93 03/01/19 02:52 88 20 98 Nasal Cannula 2.0 28 03/01/19 02:41 88 20 95 Nasal Cannula 2.0 28 02/28/19 23:33 93 02/28/19 23:32 98.8 89 18 130/63 (85) 93 02/28/19 23:30 Nasal Cannula 2.0 02/28/19 21:00 Nasal Cannula 2.0 02/28/19 20:00 97.3 91 23 147/77 (100) 94 02/28/19 19:38 96 Nasal Cannula 2.0 28 02/28/19 19:38 81 20 96 Nasal Cannula 2.0 28 02/28/19 16:00 96.4 77 18 129/61 (83) 94 Height (Feet): 5 Height (Inches): 7.00 Weight (Pounds): 206 Objective General Appearance: WD/WN Lines, tubes and drains: peripheral, PICC HEENT: normocephalic, atraumatic Neck: non-tender, supple Respiratory/Chest: chest wall non-tender, lungs clear Abdomen: normal bowel sounds, non tender Genitourinary/Rectal: normal genital exam Extremities: normal range of motion Skin Exam: normal pigmentation Neurologic: devulcanizer tender II-XII grossly normal Laboratory Tests Test 03/01/19 05:05 White Blood Count 11.9 K/UL (4.8-10.8) H Red Blood Count 4.15 M/UL (4.70-6.10) L Hemoglobin 11.3 G/DL (14.2-18.0) L Hematocrit 35.2 % (42.0-52.0) L Mean Corpuscular Volume 85 FL (80-99) Mean Corpuscular Hemoglobin 27.3 PG (27.0-31.0) Mean Corpuscular Hemoglobin Concent 32.1 G/DL (32.0-36.0) Red Cell Distribution Width 14.2 % (11.6-14.8) Platelet Count 281 K/UL (150-450) Mean Platelet Volume 6.3 FL (6.5-10.1) L Neutrophils (%) (Auto) 70.8 % (45.0-75.0) Lymphocytes (%) (Auto) 17.5 % (20.0-45.0) L Monocytes (%) (Auto) 7.6 % (1.0-10.0) Eosinophils (%) (Auto) 3.2 % (0.0-3.0) H Basophils (%) (Auto) 0.8 % (0.0-2.0) Erythrocyte Sedimentation Rate 33 MM/HR (0-20) H Sodium Level 140 MMOL/L (136-145) Potassium Level 4.0 MMOL/L (3.5-5.1) Chloride Level 103 MMOL/L (98-107) Carbon Dioxide Level 34 MMOL/L (21-32) H Anion Gap 3 mmol/L (5-15) L Blood Urea Nitrogen 11 mg/dL (7-18) Creatinine 0.8 MG/DL (0.55-1.30) Estimat Glomerular Filtration Rate mL/min (>60) Glucose Level 241 MG/DL (74-106) H Calcium Level 8.9 MG/DL (8.5-10.1) Phosphorus Level 3.5 MG/DL (2.5-4.9) Magnesium Level 1.5 MG/DL (1.8-2.4) L Total Bilirubin 0.4 MG/DL (0.2-1.0) Aspartate Amino Transf (AST/SGOT) 11 U/L (15-37) L Alanine Aminotransferase (ALT/SGPT) 8 U/L (12-78) L Alkaline Phosphatase 21 U/L (46-116) L C-Reactive Protein, Quantitative 14.9 mg/dL (0.00-0.90) H Total Protein 6.3 G/DL (6.4-8.2) L Albumin 2.4 G/DL (3.4-5.0) L Globulin 3.9 g/dL Albumin/Globulin Ratio 0.6 (1.0-2.7) L Current Medications Medications (Trade) Dose Ordered Sig/David Route PRN Reason Start Time Stop Time Status Last Admin Dose Admin Acetaminophen (Tylenol) 650 mg Q4H PRN ORAL T>100.5 03/01/19 01:15 03/28/19 09:14 Albuterol/ Ipratropium (Albuterol/ Ipratropium) 3 ml Q4H PRN HHN Shortness of Breath 02/28/19 23:30 03/05/19 11:29 03/01/19 02:41 Amlodipine Besylate (Norvasc) 5 mg DAILY ORAL 03/01/19 09:00 03/29/19 12:29 03/01/19 09:15 Cefepime HCl 2 gm/ Dextrose 110 ml @ 220 mls/hr Q12H IV 03/01/19 09:00 03/05/19 09:59 03/01/19 09:14 Clonidine HCl (Catapres Tab) 0.1 mg Q6H PRN ORAL For SBP >160 03/01/19 03:00 03/29/19 20:59 Finasteride (Proscar) 5 mg DAILY ORAL 03/01/19 09:00 03/29/19 08:59 03/01/19 09:15 Haloperidol Lactate (Haldol) 2.5 mg Q6H PRN IM AGITATION 03/01/19 03:30 03/28/19 09:29 Heparin Sodium (Porcine) (Heparin 5000 units/ml) 5,000 units EVERY 12 HOURS SUBQ 8/14/19 09:00 03/28/19 20:59 03/01/19 09:22 Losartan Potassium (Cozaar) 50 mg DAILY ORAL 03/01/19 09:00 03/29/19 08:59 03/01/19 09:14 Morphine Sulfate (Morphine Sulfate) 2 mg Q4H PRN IVP PAIN 4-10 03/01/19 01:15 03/05/19 09:14 Ondansetron HCl (Zofran) 4 mg Q6H PRN IVP Nausea & Vomiting 03/01/19 03:15 03/28/19 09:14 Phenazopyridine HCl (Pyridium) 100 mg DAILYPRN PRN ORAL dysuria/pain on urination 03/01/19 09:15 03/28/19 09:14 Polyethylene Glycol (Miralax) 17 gm DAILYPRN PRN ORAL Constipation 03/01/19 21:00 03/29/19 20:59 Tamsulosin HCl (Flomax) 0.4 mg QHS ORAL 03/01/19 21:00 03/29/19 20:59 Temazepam (Restoril) 15 mg HSPRN PRN ORAL Insomnia 03/01/19 21:00 03/05/19 20:59 Sally Guerrier M.D. Mar 01, 2019 13:02
--- NOTE | 2019-03-01 13:25 | NUR ---
DISCHARGE PLANNING DISCHARGE ORDER NOTED Patient has been accepted to; [facility] [address] [place] [address] Bed: 19-B Skilled [phone] for Nurse to Nurse report [facility] ETA for transportation: 15:00
[2019-03-01] MEDS ORDERED: CEFEPIME-D2 GM/50 ML IVPB (15:02)
[2019-03-01] MEDS ORDERED: Tubing IV Secondary IV ONE (15:44)
--- NOTE | 2019-03-01 15:45 | NUR ---
NURSE NOTES: Patient discharged with [facility] ([id number]) in stable condition. Discharge packet and belonging given to [facility]. Checked money with [facility] and patient. IV and ID removed. Steffanie ramirez. Called [facility] and given report to Elissa RAMOS.
[2019-03-01] MEDS ORDERED: Docusate 100mg cap ORAL SCH (18:00)
[2019-03-01] MEDS ORDERED: Tamsulosin 0.4mg cap ORAL SCH (21:00)
[2019-03-01] MEDS ORDERED: Miralax 17gm pkt ORAL PRN (21:00)
[2019-03-01] MEDS ORDERED: Miralax 17gm pkt ORAL SCH (21:00)
[2019-03-02] MEDS ORDERED: Sennosides 8.6mg tab ORAL SCH (09:00)
--- NOTE | 2019-03-02 09:35 | Discharge Summary ---
Discharge Summary Discharge Summary _ DATE OF ADMISSION: 02/26/2019 DATE OF DISCHARGE: 03/01/2019 DISCHARGED BY: Dr. Anders REASON FOR ADMISSION: 78 years old male with past medical history of diabetes mellitus, hypertension, COPD, hypercholesterolemia, presented to emergency department by EMS with chief complaint of altered mental status for 1 day. Nursing staff reported mild cough and shortness of breath for 1 day. No fever , no chills. No nausea , no vomiting. No chest pain. Upon evaluation vital signs were stable. Laboratory work-up revealed leukocytosis with WBC 13.9, hemoglobin 12.9 , hematocrit 41.3. Sodium 146. Glucose 124. Troponin negative. EKG revealed sinus rhythm, no acute ischemic changes. Urinalysis revealed pyuria , +2 protein , +2 leukocyte esterase Chest x-ray demonstrated no acute cardiopulmonary pathology. Patient subsequently admitted for acute metabolic encephalopathy and urinary tract infection. CONSULTANTS: pulmonary/critical care Dr. Carleen TORO specialist Dr. Guerrier [facility] COURSE: Patient admitted to medical surgical floor. Patient started on gentle IV hydration and empiric antibiotics. Pyridium provided for comfort. Pain management was addressed. DVT prophylaxis provided. Blood pressure was closely monitored and managed with hydralazine, Cozaar and calcium channel reyes. Clonidine was on board as needed. Proscar and Flomax continued. Urine culture revealed yeast species . Blood culture were negative. CRP elevated 14.9. ESR 33. Leukocytosis resolved , no fevers. Acute metabolic encephalopathy was likely due to urinary tract infection. Mental status was closely monitored. Blood sugar was managed with sliding scale of insulin. Statin was continued. Renal parameters and electrolytes were closely monitored. Magnesium was corrected . Nephrotoxics were avoided. Sodium down to 140 with IV hydration Supportive care provided. Bowel regimen instituted. Patient clinically stabilized and was ready for transfer to correction facility for continuation of care. FINAL DIAGNOSES: Acute metabolic encephalopathy, likely due to UTI Urinary tract infection Diabetes mellitus Hypertension Hypercholesteremia DISCHARGE MEDICATIONS: See Medication Reconciliation list. DISCHARGE INSTRUCTIONS: Patient was discharged to the correction facility. Follow up with medical doctor at the facility. I have been assigned to dictate discharge summary for this account. I was not involved in the patient's management. Marleny Enamorado NP Mar 02, 2019 09:35
[2019-03-03] MEDS ORDERED: Fleet's Mineral Oil Enema RECTAL SCH (09:00)
== END 2019-03-01 15:45 | DRG 689 ==
LOC: EDBD 00:22 → EMR 01:00 → 3E 01:20 → EDBEDREQ 02:18 → 3E 03:00 → 2E 02-27 20:33 → 3E 02-28 22:44
DX: N39.0 Urinary tract infection, site not specified (principal); G93.41 Metabolic encephalopathy; E11.9 Type 2 diabetes mellitus without complications; I10 Essential (primary) hypertension; E78.00 Pure hypercholesterolemia, unspecified; Z79.82 Long term (current) use of aspirin
CPT/HCPCS: 36415; 71045; 80048; 80053; 81001; 83735; 84100; 84484; 85025; 85651; 86140; 87040; 87081; 87086; 93005; 94640; 94664; 96365; 96367; 99285; J7620